=== PATIENT | female | born 1975 | race Two or more races ===

== ENCOUNTER 2016-12-17 15:13 | Inpatient (IN) | payer MEDICAID ==
[~2016-12-17] VITALS: Ht 165.1 cm; Wt 56.7 kg
--- NOTE | 2016-12-17 15:08 | Emergency Room Report ---
History of Present Illness General Source: Patient, EMS Present Illness HPI 41YOF BIBEMS for near-syncope from work. EMS states, near-syncope, ?syncope witnessed at work. Patient endorses abd pain radiating up chest. History of pancreatitis, chronic To nurse, patient endorses "whole body pain for 2 weeks." Multiple stories from patient regarding chief complaint. Per adult secondary education instructor, patient's main concern is "pain everywhere." EMS rhythm strip notes sinus tachycardia. Allergies: Coded Allergies: No Known Allergies (Unverified , 12/17/16) Patient History Past Medical History: other - ?pancreatitis Past Surgical History: none Pertinent Family History: none Social History: Denies: alcohol use, drug use, smoking Now: No Immunizations: UTD Reviewed Nursing Documentation: PMH: Agreed, PSxH: Agreed Review of Systems All Other Systems: negative except mentioned in HPI Physical Exam Sp02 EP Interpretation: reviewed, normal General Appearance: normal inspection, well appearing, no apparent distress, alert, GCS 15, non-toxic Head: normocephalic, atraumatic Eyes: bilateral eye EOMI, bilateral eye PERRL ENT: normal ENT inspection, hearing grossly normal, normal voice Neck: normal inspection, full range of motion, supple, no bony tend Respiratory: normal inspection, lungs clear, normal breath sounds, no respiratory distress, no retraction, no wheezing Cardiovascular #1: tachycardia Gastrointestinal: normal inspection, normal bowel sounds, non tender, soft, no guarding, no hernia Genitourinary: no CVA tenderness Musculoskeletal: normal inspection, back normal, normal range of motion, Palma' s Sign negative Neurologic: normal inspection, alert, oriented x3, responsive, covered button maker III-XII nml as tested, speech normal Psychiatric: normal inspection, judgement/insight normal, mood/affect normal, no suicidal/homicidal ideation, no delusions, anxious Skin: normal inspection, normal color, no rash Medical Decision Making Diagnostic Impression: Primary Impression: Pancreatitis Qualified Codes: K85.90 - Acute pancreatitis without necrosis or infection, unspecified Additional Impression: Sepsis Qualified Codes: A41.9 - Sepsis, unspecified organism ER Course Pancreatitis - ?acute. Lipase >300. LFTs normal - Made NPO, on maintenance fluids - CT: pancreatic duct prominence with ?stent malfunction - informed Dr Toscano who consulted Dr Jolly. Leukocytosis - Unknown source - CXR and UA negative for infection - Empiric Abx given - Blood Cx pending - ?related to acute stress from pancreatitis. patient otherwise afebrile, hemodynamiclly stable Endorsed to Dr Toscano for Panel admit at 553pm EKG Diagnostic Results Rate: tachycardiac Rhythm: NSR ST Segments: no acute changes ASA given to the pt in ED: No Rhythm Strip Diag. Results EP Interpretation: yes Rate: 90 Rhythm: NSR, no PVC's, no ectopy Status: improved Disposition: ADMITTED INPATIENT Condition: Critical MORENO BULLARD M.D. Dec 17, 2016 15:08
[2016-12-17 16:00] VITALS: BP 116/69
[2016-12-17 16:14] LABS: MEAN CORPUSCULAR HEMOGLOBIN 24.4 PG (27.0-31.0); MEAN CORPUSCULAR HGB CONC 30.7 G/DL (32.0-36.0); MEAN CORPUSCULAR VOLUME 80 FL (80-99); MEAN PLATELET VOLUME 8.5 FL (6.5-10.1); PLATELET COUNT 331 K/UL (150-450); RED BLOOD COUNT 4.06 M/UL (4.20-5.40); RED CELL DISTRIBUTION WIDTH 16.3 % (11.6-14.8); WHITE BLOOD COUNT 16.9 K/UL (4.8-10.8)
[2016-12-17 16:39] LABS: ALANINE AMINOTRANSFERASE 14 U/L (3-33); ALBUMIN/GLOBULIN RATIO 1.2 (1.0-2.7); ANION GAP 14 (5-15); ASPARTATE AMINO TRANSFERASE 18 U/L (5-40); CALCIUM 9.6 mg/dL (8.6-10.2); CARBON DIOXIDE 23 mEQ/L (20-30); CHLORIDE 103 mEQ/L (98-107); CREATININE 0.7 mg/dL (0.5-0.9); GLOMERULAR FILTRATION RATE > 60 mL/min (>60); HEMOLYSIS 0; POTASSIUM 3.8 mEQ/L (3.4-4.9); SODIUM 140 mEQ/L (135-145); TOTAL PROTEIN 7.8 g/dL (6.6-8.7)
[2016-12-17 16:39] LABS: APPEARANCE,URINE CLEAR; KETONES,URINE NEGATIVE (NEGATIVE); LEUKOCYTE ESTERASE ,URINE NEGATIVE (NEGATIVE); NITRITE,URINE NEGATIVE (NEGATIVE); PH,URINE 7 (4.5-8.0); PROTEIN,URINE NEGATIVE (NEGATIVE); UROBILINOGEN,URINE NORMAL MG/DL (0.0-1.0)
[2016-12-17 16:40] LABS: ANISOCYTOSIS 1+; BAND NEUTROPHILS % (MANUAL) 0 % (0-8); BASOPHILS % (MANUAL) 0 % (0-2); EOSINOPHILS % (MANUAL) 0 % (0-3); LYMPHOCYTES % (MANUAL) 7 % (20-45); NEUTROPHILS % (MANUAL) 85 % (45-75); PLATELET ESTIMATE ADEQUATE; PLATELET MORPHOLOGY NORMAL; TOTAL CELLS COUNTED 100
[2016-12-17] MEDS ORDERED: Piperacillin/Tazobactam 3.375 GM in NS 110 ML IVPB ONE (16:45)
[2016-12-17] MEDS ORDERED: Vancomycin 1 GM in NS 275 ML IVPB ONE (16:45)
[2016-12-17] MEDS ORDERED: Morphine Sulfate 4mg/ml Inj IVP ONE (16:45)
[2016-12-17 16:51] LABS: LIPASE > 300 U/L (< 60)
[2016-12-17] MEDS ORDERED: LR 1000ml 1,000 ML IV SCH (17:15)
--- NOTE | 2016-12-17 17:22 | Diagnostic Imaging Report ---
Indication: SOB Technique: One view of the chest Comparison: none Findings: Lungs and pleural spaces are clear. Heart size is normal. Impression: No acute process
[2016-12-17 18:00] VITALS: BP 128/72
[2016-12-17] MEDS ORDERED: Morphine Sulfate 2mg/ml Inj IVP ONE (18:00)
[2016-12-17] MEDS ORDERED: Tubing IV Secondary IV ONE (18:00)
[2016-12-17] MEDS ORDERED: Vancomycin 1gm inj IVPB ONE (18:00)
[2016-12-17] MEDS ORDERED: Tubing IV Cassette IV ONE (18:00)
[2016-12-17] MEDS ORDERED: Zosyn 3.375gm inj ONE (18:00)
[2016-12-17] MEDS ORDERED: NS 110 ML ONE (18:00)
[2016-12-17] MEDS ORDERED: NS 275 ML ONE (18:00)
[2016-12-17] MEDS ORDERED: Nitroglycerin Subl 0.4mg tab (Bottle Of 25) SL PRN (18:45)
[2016-12-17] MEDS ORDERED: Metoclopramide 10mg/2ml Inj IVP PRN (18:45)
[2016-12-17] MEDS ORDERED: HYDROmorphone 1mg/ml Carpuject IVP ONE (18:45)
[2016-12-17] MEDS ORDERED: LORazepam Inj 2mg/ml 1ml IV PRN (18:45)
[2016-12-17] MEDS ORDERED: Mylanta II UD 30ml ORAL PRN (18:45)
[2016-12-17] MEDS ORDERED: Miralax 17gm pkt ORAL PRN (18:45)
[2016-12-17 20:00] VITALS: BP 136/74
[2016-12-17 21:53] VITALS: BP 115/67
[2016-12-17] MEDS: D5 1/2NS 1,000 ML IV SCH (22:57)
[2016-12-17] MEDS: Heparin 5000 units/ml inj SUBQ SCH (22:58)
--- NOTE | 2016-12-17 23:01 | History and Physical ---
History of Present Illness General Date patient seen: Dec 17, 2016 Reason for Hospitalization: General Complaint Present Illness HPI 41 year old female with hx of pancreatitis presented with multiple complains but mostly abdominal pain, epigastric with radiation to the RLQ and surrounding areas x 3 weeks. The patient has history of pancreatic stent placement 2 years ago. Her lipase was > 300 with possible pancreatic stent malfunction on CT AP. In addition, noted 5 cm mass on right hepatic lobe. Pt is admitted for further evaluation. Allergies: Coded Allergies: No Known Allergies (Unverified , 12/17/16) Patient History Healthcare decision maker Resuscitation status Advanced Directive on File Past Medical/Surgical History Past Medical/Surgical History: (1) Liver mass, right lobe (2) Anemia (3) Pancreatitis Review of Systems All Other Systems: negative except mentioned in HPI Physical Exam General Appearance: WD/WN Lines, tubes and drains: peripheral HEENT: normocephalic, atraumatic Neck: non-tender, normal alignment Respiratory/Chest: chest wall non-tender, lungs clear Breasts: no masses Cardiovascular/Chest: normal peripheral pulses, normal rate Abdomen: normal bowel sounds, soft Genitourinary/Rectal: normal genital exam Extremities: normal range of motion, non-tender Skin Exam: normal pigmentation Neurologic: senior business architect II-XII grossly normal Lymphatic: anterior cervical Last 24 Hour Vital Signs Date Time Temp Pulse Resp B/P Pulse Ox O2 Delivery O2 Flow Rate FiO2 12/17/16 21:53 97.9 71 14 115/67 100 Room Air 12/17/16 20:00 97.9 71 12 136/74 100 Room Air 12/17/16 18:20 99.0 12/17/16 18:00 72 16 128/72 100 Room Air 12/17/16 17:15 99.0 12/17/16 16:00 68 16 116/69 100 Room Air 12/17/16 15:06 99.0 106 20 144/93 98 Room Air Laboratory Tests Test 12/17/16 15:45 12/17/16 16:30 White Blood Count 16.9 K/UL (4.8-10.8) H Red Blood Count 4.06 M/UL (4.20-5.40) L Hemoglobin 9.9 G/DL (12.0-16.0) L Hematocrit 32.3 % (37.0-47.0) L Mean Corpuscular Volume 80 FL (80-99) Mean Corpuscular Hemoglobin 24.4 PG (27.0-31.0) L Mean Corpuscular Hemoglobin Concent 30.7 G/DL (32.0-36.0) L Red Cell Distribution Width 16.3 % (11.6-14.8) H Platelet Count 331 K/UL (150-450) Mean Platelet Volume 8.5 FL (6.5-10.1) Neutrophils (%) (Auto) % (45.0-75.0) Lymphocytes (%) (Auto) % (20.0-45.0) Monocytes (%) (Auto) % (1.0-10.0) Eosinophils (%) (Auto) % (0.0-3.0) Basophils (%) (Auto) % (0.0-2.0) Differential Total Cells Counted 100 Neutrophils % (Manual) 85 % (45-75) H Lymphocytes % (Manual) 7 % (20-45) L Monocytes % (Manual) 8 % (1-10) Eosinophils % (Manual) 0 % (0-3) Basophils % (Manual) 0 % (0-2) Band Neutrophils 0 % (0-8) Platelet Estimate Adequate Platelet Morphology Normal Anisocytosis 1+ Sodium Level 140 mEQ/L (135-145) Potassium Level 3.8 mEQ/L (3.4-4.9) Chloride Level 103 mEQ/L (98-107) Carbon Dioxide Level 23 mEQ/L (20-30) Anion Gap 14 (5-15) Blood Urea Nitrogen 8 mg/dL (7-23) Creatinine 0.7 mg/dL (0.5-0.9) Estimat Glomerular Filtration Rate > 60 mL/min (>60) Glucose Level 120 mg/dL (74-106) H Calcium Level 9.6 mg/dL (8.6-10.2) Total Bilirubin 0.4 mg/dL (0.0-1.2) Aspartate Amino Transf (AST/SGOT) 18 U/L (5-40) Alanine Aminotransferase (ALT/SGPT) 14 U/L (3-33) Alkaline Phosphatase 60 U/L (35-104) Total Protein 7.8 g/dL (6.6-8.7) Albumin 4.3 g/dL (3.5-5.2) Globulin 3.5 g/dL Albumin/Globulin Ratio 1.2 (1.0-2.7) Lipase > 300 U/L (< 60) H Urine Color Pale yellow Urine Appearance Clear Urine pH 7 (4.5-8.0) Urine Specific [address] 1.010 (1.005-1.035) Urine Protein Negative (NEGATIVE) Urine Glucose (UA) Negative (NEGATIVE) Urine Ketones Negative (NEGATIVE) Urine Occult Blood Negative (NEGATIVE) Urine Nitrite Negative (NEGATIVE) Urine Bilirubin Negative (NEGATIVE) Urine Urobilinogen Normal MG/DL (0.0-1.0) Urine Leukocyte Esterase Negative (NEGATIVE) Height (Feet): 5 Weight (Pounds): 125 Medications Current Medications Medications (Trade) Dose Ordered Sig/José Luis Route PRN Reason Start Time Stop Time Status Last Admin Dose Admin Acetaminophen (Tylenol) 650 mg Q4H PRN ORAL fever 12/17/16 18:45 01/16/17 18:44 Al Hydroxide/Mg Hydroxide (Mylanta II) 30 ml Q6H PRN ORAL dyspepsia 12/17/16 18:45 01/16/17 18:44 Dextrose (Dextrose 50%) STAT PRN IV Hypoglycemia 12/17/16 18:45 01/16/17 18:44 Dextrose/Sodium Chloride (D5 0.45% NS) 1,000 ml @ 75 mls/hr [id number] IV 12/17/16 21:00 01/16/17 20:59 12/17/16 22:57 Diphenhydramine HCl (Benadryl) 25 mg Q6H PRN ORAL Itching/Pruritis 12/17/16 18:45 01/16/17 18:44 Heparin Sodium (Porcine) (Heparin 5000 units/ml) 5,000 units EVERY 12 HOURS SUBQ 12/17/16 21:00 01/16/17 20:59 12/17/16 22:58 Lorazepam (Ativan 2mg/ml 1ml) 1 mg Q4H PRN IV agitation 12/17/16 18:45 12/24/16 18:44 Metoclopramide HCl (Reglan) 10 mg Q6H PRN IVP servere nauasea 12/17/16 18:45 01/16/17 18:44 Morphine Sulfate (Morphine Sulfate) 2 mg Q4H PRN IVP severe Pain (Pain Scale 7-10) 12/17/16 18:45 12/24/16 18:44 Nitroglycerin (Ntg) 0.4 mg Q5M X 3 DOSES PRN SL Prn Chest Pain 12/17/16 18:45 01/16/17 18:44 Ondansetron HCl (Zofran) 4 mg Q6H PRN IVP Nausea & Vomiting 12/17/16 18:45 01/16/17 18:44 Pantoprazole (Protonix) 40 mg DAILY IV 12/18/16 09:00 01/17/17 08:59 Polyethylene Glycol (Miralax) 17 gm HSPRN PRN ORAL Constipation 12/17/16 18:45 01/16/17 18:44 Promethazine HCl (Phenergan) 25 mg Q8H PRN IV refractory nausea 12/17/16 18:45 01/16/17 18:44 Temazepam (Restoril) 15 mg HSPRN PRN ORAL Insomnia 12/17/16 18:45 12/24/16 18:44 Assessment/Plan Problem List: (1) Pancreatitis ICD Codes: K85.90 - Acute pancreatitis without necrosis or infection, unspecified SNOMED: 60107454 Qualifiers: Qualified Codes: K85.90 - Acute pancreatitis without necrosis or infection, unspecified (2) Anemia ICD Codes: D64.9 - Anemia, unspecified SNOMED: 042154763 (3) Liver mass, right lobe ICD Codes: R16.0 - Hepatomegaly, not elsewhere classified SNOMED: 052466528 Assessment/Plan NPO IV fluids GI evaluation f/u lipase level sympotmatic treatment AMINAH TAM Dec 17, 2016 23:01
[2016-12-17] MEDS: Morphine Sulfate 2mg/ml Inj IVP PRN (23:08)
[2016-12-18] VITALS: BP 106/67
[2016-12-18] MEDS: Morphine Sulfate 2mg/ml Inj IVP PRN ×2 (03:53→16:27)
[2016-12-18 03:55] VITALS: BP 110/62
[2016-12-18 08:09] VITALS: BP 101/61
[2016-12-18] MEDS: Pantoprazole Inj IV SCH (08:30)
[2016-12-18] MEDS: Heparin 5000 units/ml inj SUBQ SCH ×2 (08:31→21:51)
--- NOTE | 2016-12-18 10:27 | Diagnostic Imaging Report ---
Indications: Abdominal pain Technique: Continuous helical CT imaging of the abdomen and pelvis was performed with automatic exposure control following administration of nonionic IV contrast only, on a Siemens sensation [address] scanner. Axial, coronal, sagittal images were reconstructed at 5 mm slice thickness. No oral contrast was administered per requesting physician's order, despite no contraindications listed in either submitted clinical data or tech note.. CTDI volume(s): 15 mGy Total DLP: 821 mGy-cm Findings: Comparison: None Lack of oral contrast limits evaluation of gastrointestinal tract, nondilated throughout. Appendix unremarkable. Increased feces throughout colon. No obvious mural thickening, adjacent stranding, extraluminal gas or fluid collections identified, aside from minimal free fluid in the dependent portion of the pelvis. 2 cm thickwalled irregular cystic lesion in right adnexal region. 3 cm simple appearing cystic lesion in left adnexal region. Prominence of uterine endometrium. 5 cm low-attenuation mass in posterior aspect of hepatic segment 7 with patchy areas of peripheral and central enhancement. Stent extends from a pancreatic duct into the second portion of duodenum. Pancreatic duct peripheral to stent diffusely dilated. No associated mass identified.. Kc liver, gallbladder, spleen, adrenal glands, kidneys, unopacified ureters and urinary bladder,, vascular structures, retroperitoneum, mesentery, remainder visualized abdominopelvic anatomy unremarkable. Irregular pleural-based linear densities in both lung bases. Hazy interstitial opacity left lower lobe. Heart upper limits of normal in size.. No focal skeletal abnormalities are identified. IMPRESSION: No evidence of acute abdominopelvic disease, with limitation as described. Subtle but potentially significant abnormalities the gastrointestinal tract may be missed. Repeat CT scan with full oral and IV contrast preparation recommended for more complete evaluation, as clinically indicated Bilateral adnexal cystic lesions as described, likely physiologic ovarian, right perhaps recently ruptured Minimal pelvic free fluid may be secondary to above Prominence of uterine endometrium may reflect phase of menses. Ultrasound correlation suggested. 5 cm mass right hepatic lobe probably but not definitely hemangioma. Multiphasic contrast-enhanced CT scan or MRI of the liver, mass protocol, recommended for confirmation Pancreatic duct dilation, etiology indeterminate, with plastic stent in place Constipation Pulmonary bibasal subsegmental atelectasis versus scarring Nonspecific interstitial infiltrate left lung base. Early pneumonia not excludable. This finding not described in [facility] preliminary report, minor discrepancy. This correlates with [facility] preliminary report.
[2016-12-18] MEDS: D5 1/2NS 1,000 ML IV SCH ×2 (10:38→23:59)
[2016-12-18 11:34] VITALS: BP 103/58
--- NOTE | 2016-12-18 13:59 | Diagnostic Imaging Report ---
Indications: Epigastric abdominal pain Technique: Transabdominal real-time grayscale and duplex Doppler imaging of the upper abdomen and retroperitoneum was performed. Findings: Comparison: CT abdomen pelvis 12/17/16. Liver normal size and surface contour, parenchymal echogenicity. 5 x 4 x 3 cm solid echogenic mass in posterior aspect right hepatic lobe, corresponding to CT finding.. Gallbladder unremarkable. No intraluminal stones or sludge. No mural thickening or adjacent fluid collections. Sonographic Gregory sign not reported.. Bile ducts normal caliber. Common bile duct 6 mm. Pancreas main duct dilated 6 mm, contains linear echogenic focus. Head and body parenchyma unremarkable; tail obscured. Spleen unremarkable. Right kidney unremarkable. Left kidney unremarkable. Abdominal aorta, intrahepatic portion of inferior vena cava patent, normal caliber. Duplex Doppler imaging demonstrates antegrade flow in splenic, portal, hepatic veins. No ascites. IMPRESSION: Dilated pancreatic duct with stent in place, corresponding to CT findings. Stent patency indeterminate. 5 cm mass right hepatic lobe compatible with hemangioma, corresponding to CT finding.
--- NOTE | 2016-12-18 14:23 | GI Initial Consult Note ---
History of Present Illness General Date patient seen: Dec 18, 2016 Time patient seen: 11:00 Reason for Hospitalization: General Complaint Referring physician: AMINAH CONNOR Reason for Consultation: PANCREATITIS Present Illness HPI 41YOF BIBEMS for near-syncope from work. EMS states, near-syncope, ?syncope witnessed at work. Patient endorses abd pain radiating up chest. History of pancreatitis, chronic To nurse, patient endorses "whole body pain for 2 weeks." Multiple stories from patient regarding chief complaint. Per toolroom helper, patient's main concern is "pain everywhere." EMS rhythm strip notes sinus tachycardia. GI Consult. HPI as noted above. GI consulted for pancreatitis. Pt seen on floor, awake A&Ox4 NAD with no active s/sx of N/V/D. Complaints of abdominal pain epigastric with radiation to the RLQ and surrounding areas x 3 weeks. The patient has history of pancreatic stent placement 2 years ago. She presents today with elevated lipase > 300 with possible pancreatic stent malfunction on CT AP. In addition, noted 5 cm mass on right hepatic lobe. Labs show leukocytosis and anemia. Procedure: CT Abdomen Pelvis w/Contrast Indications: Abdominal pain IMPRESSION: No evidence of acute abdominopelvic disease, with limitation as described. Subtle but potentially significant abnormalities the gastrointestinal tract may be missed. Repeat CT scan with full oral and IV contrast preparation recommended for more complete evaluation, as clinically indicated Bilateral adnexal cystic lesions as described, likely physiologic ovarian, right perhaps recently ruptured Minimal pelvic free fluid may be secondary to above Prominence of uterine endometrium may reflect phase of menses. Ultrasound correlation suggested. 5 cm mass right hepatic lobe probably but not definitely hemangioma. Multiphasic contrast-enhanced CT scan or MRI of the liver, mass protocol, recommended for confirmation Pancreatic duct dilation, etiology indeterminate, with plastic stent in place Constipation Pulmonary bibasal subsegmental atelectasis versus scarring Nonspecific interstitial infiltrate left lung base. Early pneumonia not excludable. Procedure: US ABD Complete Indications: Epigastric abdominal pain IMPRESSION: Dilated pancreatic duct with stent in place, corresponding to CT findings. Stent patency indeterminate. 5 cm mass right hepatic lobe compatible with hemangioma, corresponding to CT finding. Allergies: Coded Allergies: No Known Allergies (Unverified , 12/17/16) Patient History History Provided By: Patient, Medical Record PM Narrative Past Medical History: other - ?pancreatitis Past Surgical History: none Pertinent Family History: none Social History: Denies: alcohol use, drug use, smoking Now: No Immunizations: UTD Reviewed Nursing Documentation: PMH: Agreed, PSxH: Agreed Social History: Denies: alcohol use, drug use, other, smoking Review of Systems All Other Systems: negative except mentioned in HPI Physical Exam Vital Signs Date Time Temp Pulse Resp B/P Pulse Ox O2 Delivery O2 Flow Rate FiO2 12/17/16 15:06 99.0 106 20 144/93 98 Room Air Sp02 EP Interpretation: reviewed Labs Laboratory Tests Test 12/17/16 15:45 12/17/16 16:30 White Blood Count 16.9 K/UL (4.8-10.8) H Red Blood Count 4.06 M/UL (4.20-5.40) L Hemoglobin 9.9 G/DL (12.0-16.0) L Hematocrit 32.3 % (37.0-47.0) L Mean Corpuscular Volume 80 FL (80-99) Mean Corpuscular Hemoglobin 24.4 PG (27.0-31.0) L Mean Corpuscular Hemoglobin Concent 30.7 G/DL (32.0-36.0) L Red Cell Distribution Width 16.3 % (11.6-14.8) H Platelet Count 331 K/UL (150-450) Mean Platelet Volume 8.5 FL (6.5-10.1) Neutrophils (%) (Auto) % (45.0-75.0) Lymphocytes (%) (Auto) % (20.0-45.0) Monocytes (%) (Auto) % (1.0-10.0) Eosinophils (%) (Auto) % (0.0-3.0) Basophils (%) (Auto) % (0.0-2.0) Differential Total Cells Counted 100 Neutrophils % (Manual) 85 % (45-75) H Lymphocytes % (Manual) 7 % (20-45) L Monocytes % (Manual) 8 % (1-10) Eosinophils % (Manual) 0 % (0-3) Basophils % (Manual) 0 % (0-2) Band Neutrophils 0 % (0-8) Platelet Estimate Adequate Platelet Morphology Normal Anisocytosis 1+ Sodium Level 140 mEQ/L (135-145) Potassium Level 3.8 mEQ/L (3.4-4.9) Chloride Level 103 mEQ/L (98-107) Carbon Dioxide Level 23 mEQ/L (20-30) Anion Gap 14 (5-15) Blood Urea Nitrogen 8 mg/dL (7-23) Creatinine 0.7 mg/dL (0.5-0.9) Estimat Glomerular Filtration Rate > 60 mL/min (>60) Glucose Level 120 mg/dL (74-106) H Calcium Level 9.6 mg/dL (8.6-10.2) Total Bilirubin 0.4 mg/dL (0.0-1.2) Aspartate Amino Transf (AST/SGOT) 18 U/L (5-40) Alanine Aminotransferase (ALT/SGPT) 14 U/L (3-33) Alkaline Phosphatase 60 U/L (35-104) Total Protein 7.8 g/dL (6.6-8.7) Albumin 4.3 g/dL (3.5-5.2) Globulin 3.5 g/dL Albumin/Globulin Ratio 1.2 (1.0-2.7) Lipase > 300 U/L (< 60) H Urine Color Pale yellow Urine Appearance Clear Urine pH 7 (4.5-8.0) Urine Specific [place] 1.010 (1.005-1.035) Urine Protein Negative (NEGATIVE) Urine Glucose (UA) Negative (NEGATIVE) Urine Ketones Negative (NEGATIVE) Urine Occult Blood Negative (NEGATIVE) Urine Nitrite Negative (NEGATIVE) Urine Bilirubin Negative (NEGATIVE) Urine Urobilinogen Normal MG/DL (0.0-1.0) Urine Leukocyte Esterase Negative (NEGATIVE) General Appearance: well appearing, no apparent distress Head: normocephalic EENT: PERRL/EOMI, normal ENT inspection Neck: supple Respiratory: normal breath sounds, no respiratory distress Cardiovascular: normal rate Gastrointestinal: soft, normal bowel sounds, tenderness Rectal: deferred Genitourinary: no CVA tenderness Musculoskeletal: back normal Neurologic: normal inspection, alert, oriented x3, responsive Psychiatric: normal inspection, judgement/insight normal, memory normal Skin: normal inspection, normal color, no rash, warm/dry Lymphatic: normal inspection, no adenopathy Current Medications Current Medications Medications (Trade) Dose Ordered Sig/José Luis Route PRN Reason Start Time Stop Time Status Last Admin Dose Admin Acetaminophen (Tylenol) 650 mg Q4H PRN ORAL fever 12/17/16 18:45 01/16/17 18:44 Al Hydroxide/Mg Hydroxide (Mylanta II) 30 ml Q6H PRN ORAL dyspepsia 12/17/16 18:45 01/16/17 18:44 Dextrose (Dextrose 50%) STAT PRN IV Hypoglycemia 12/17/16 18:45 01/16/17 18:44 Dextrose/Sodium Chloride (D5 0.45% NS) 1,000 ml @ 75 mls/hr [id number] IV 12/17/16 21:00 01/16/17 20:59 12/18/16 10:38 Diphenhydramine HCl (Benadryl) 25 mg Q6H PRN ORAL Itching/Pruritis 12/17/16 18:45 01/16/17 18:44 Heparin Sodium (Porcine) (Heparin 5000 units/ml) 5,000 units EVERY 12 HOURS SUBQ 12/17/16 21:00 01/16/17 20:59 12/18/16 08:31 Lorazepam (Ativan 2mg/ml 1ml) 1 mg Q4H PRN IV agitation 12/17/16 18:45 12/24/16 18:44 Metoclopramide HCl (Reglan) 10 mg Q6H PRN IVP servere nauasea 12/17/16 18:45 01/16/17 18:44 Morphine Sulfate (Morphine Sulfate) 2 mg Q4H PRN IVP severe Pain (Pain Scale 7-10) 12/17/16 18:45 12/24/16 18:44 12/18/16 03:53 Nitroglycerin (Ntg) 0.4 mg Q5M X 3 DOSES PRN SL Prn Chest Pain 12/17/16 18:45 01/16/17 18:44 Ondansetron HCl (Zofran) 4 mg Q6H PRN IVP Nausea & Vomiting 12/17/16 18:45 01/16/17 18:44 12/18/16 03:52 Pantoprazole (Protonix) 40 mg DAILY IV 12/18/16 09:00 01/17/17 08:59 12/18/16 08:30 Polyethylene Glycol (Miralax) 17 gm HSPRN PRN ORAL Constipation 12/17/16 18:45 01/16/17 18:44 Promethazine HCl (Phenergan) 25 mg Q8H PRN IV refractory nausea 12/17/16 18:45 01/16/17 18:44 Temazepam (Restoril) 15 mg HSPRN PRN ORAL Insomnia 12/17/16 18:45 12/24/16 18:44 GI: Plan Problems: (1) Anemia (2) Liver mass, right lobe (3) Leukocytosis (4) Pancreatitis (5) Sepsis Plan ERCP to be scheduled ordered MRI liver protocol to evaluate mass ordered tumor markers, hepatitis panel maintain NPO + IVFs pain mgmt repeat lipase levels ppi abx fu labs Discussed with Dr. Jolly. Thank you for referring this patient, we will follow. Jaylyn Orlando N.P. Dec 18, 2016 14:23
--- NOTE | 2016-12-18 15:26 | Pulmonology Progress Note ---
Assessment/Plan Problems: (1) Pancreatitis (2) Anemia (3) Liver mass, right lobe Assessment/Plan scheduled for ERCP NPO iv fluids check electrolytes Subjective ROS Limited/Unobtainable: No HEENT: Repors: no symptoms Respiratory: Reports: no symptoms Cardiovascular: Reports: no symptoms Allergies: Coded Allergies: No Known Allergies (Unverified , 12/17/16) Objective Last 24 Hour Vital Signs Date Time Temp Pulse Resp B/P Pulse Ox O2 Delivery O2 Flow Rate FiO2 12/18/16 11:34 97.7 65 20 103/58 98 Room Air 12/18/16 08:09 98.2 61 18 101/61 97 Room Air 12/18/16 04:23 97.6 12/18/16 03:55 97.6 65 17 110/62 95 Room Air 12/18/16 00:00 97.5 73 20 106/67 99 Room Air 12/17/16 21:53 97.9 70 12 115/67 96 Room Air 12/17/16 21:53 97.9 71 14 115/67 100 Room Air 12/17/16 20:00 97.9 71 12 136/74 100 Room Air 12/17/16 18:20 99.0 12/17/16 18:00 72 16 128/72 100 Room Air 12/17/16 17:15 99.0 12/17/16 16:00 68 16 116/69 100 Room Air Intake and Output 12/17/16 12/18/16 19:00 07:00 Intake Total 1110 ml 600 ml Balance 1110 ml 600 ml Intake Oral 0 ml 0 ml IV Total 1110 ml 600 ml # Voids 1 General Appearance: WD/WN HEENT: normocephalic, atraumatic Respiratory/Chest: chest wall non-tender, lungs clear Breasts: no masses Cardiovascular: normal peripheral pulses Abdomen: normal bowel sounds, soft, non tender Genitourinary: normal external genitalia Extremities: no cyanosis Skin: no rash Neurologic/Psychiatric: drug safety physician II-XII grossly normal Laboratory Tests 12/17/16 15:45: White Blood Count 16.9H, Red Blood Count 4.06L, Hemoglobin 9.9L, Hematocrit 32.3L, Mean Corpuscular Volume 80, Mean Corpuscular Hemoglobin 24.4L, Mean Corpuscular Hemoglobin Concent 30.7L, Red Cell Distribution Width 16.3H, Platelet Count 331, Mean Platelet Volume 8.5, Neutrophils (%) (Auto) , Lymphocytes (%) (Auto) , Monocytes (%) (Auto) , Eosinophils (%) (Auto) , Basophils (%) (Auto) , Differential Total Cells Counted 100, Neutrophils % ( Manual) 85H, Lymphocytes % (Manual) 7L, Monocytes % (Manual) 8, Eosinophils % ( Manual) 0, Basophils % (Manual) 0, Band Neutrophils 0, Platelet Estimate Adequate, Platelet Morphology Normal, Anisocytosis 1+, Sodium Level 140, Potassium Level 3.8, Chloride Level 103, Carbon Dioxide Level 23, Anion Gap 14, Blood Urea Nitrogen 8, Creatinine 0.7, Estimat Glomerular Filtration Rate > 60, Glucose Level 120H, Calcium Level 9.6, Total Bilirubin 0.4, Aspartate Amino Transf (AST/SGOT) 18, Alanine Aminotransferase (ALT/SGPT) 14, Alkaline Phosphatase 60, Total Protein 7.8, Albumin 4.3, Globulin 3.5, Albumin/Globulin Ratio 1.2, Lipase > 300H 12/17/16 16:30: Urine Color Pale yellow, Urine Appearance Clear, Urine pH 7, Urine Specific Igo 1.010, Urine Protein Negative, Urine Glucose (UA) Negative, Urine Ketones Negative, Urine Occult Blood Negative, Urine Nitrite Negative, Urine Bilirubin Negative, Urine Urobilinogen Normal, Urine Leukocyte Esterase Negative Current Medications Medications (Trade) Dose Ordered Sig/José Luis Route PRN Reason Start Time Stop Time Status Last Admin Dose Admin Acetaminophen (Tylenol) 650 mg Q4H PRN ORAL fever 12/17/16 18:45 01/16/17 18:44 Al Hydroxide/Mg Hydroxide (Mylanta II) 30 ml Q6H PRN ORAL dyspepsia 12/17/16 18:45 01/16/17 18:44 Dextrose (Dextrose 50%) STAT PRN IV Hypoglycemia 12/17/16 18:45 01/16/17 18:44 Dextrose/Sodium Chloride (D5 0.45% NS) 1,000 ml @ 75 mls/hr [id number] IV 12/17/16 21:00 01/16/17 20:59 12/18/16 10:38 Diphenhydramine HCl (Benadryl) 25 mg Q6H PRN ORAL Itching/Pruritis 12/17/16 18:45 01/16/17 18:44 Heparin Sodium (Porcine) (Heparin 5000 units/ml) 5,000 units EVERY 12 HOURS SUBQ 12/17/16 21:00 01/16/17 20:59 12/18/16 08:31 Lorazepam (Ativan 2mg/ml 1ml) 1 mg Q4H PRN IV agitation 12/17/16 18:45 12/24/16 18:44 Metoclopramide HCl (Reglan) 10 mg Q6H PRN IVP servere nafreemansea 12/17/16 18:45 01/16/17 18:44 Morphine Sulfate (Morphine Sulfate) 2 mg Q4H PRN IVP severe Pain (Pain Scale 7-10) 12/17/16 18:45 12/24/16 18:44 12/18/16 03:53 Nitroglycerin (Ntg) 0.4 mg Q5M X 3 DOSES PRN SL Prn Chest Pain 12/17/16 18:45 01/16/17 18:44 Ondansetron HCl (Zofran) 4 mg Q6H PRN IVP Nausea & Vomiting 12/17/16 18:45 01/16/17 18:44 12/18/16 03:52 Pantoprazole (Protonix) 40 mg DAILY IV 12/18/16 09:00 01/17/17 08:59 12/18/16 08:30 Polyethylene Glycol (Miralax) 17 gm HSPRN PRN ORAL Constipation 12/17/16 18:45 01/16/17 18:44 Promethazine HCl (Phenergan) 25 mg Q8H PRN IV refractory nausea 12/17/16 18:45 01/16/17 18:44 Temazepam (Restoril) 15 mg HSPRN PRN ORAL Insomnia 12/17/16 18:45 12/24/16 18:44 AMINAH TAM Dec 18, 2016 15:26
[2016-12-18 15:55] VITALS: BP 109/59
[2016-12-18 20:00] VITALS: BP 119/66
[2016-12-19] VITALS: BP 98/56
[2016-12-19 04:00] VITALS: BP 101/53
[2016-12-19 05:50] LABS: BASOPHILS % (AUTO) 0.7 % (0.0-2.0); EOSINOPHILS % (AUTO) 1.6 % (0.0-3.0); LYMPHOCYTES % (AUTO) 17.1 % (20.0-45.0); MEAN CORPUSCULAR HEMOGLOBIN 24.6 PG (27.0-31.0); MEAN CORPUSCULAR HGB CONC 30.8 G/DL (32.0-36.0); MEAN CORPUSCULAR VOLUME 80 FL (80-99); MEAN PLATELET VOLUME 8.5 FL (6.5-10.1); MONOCYTES % (AUTO) 8.9 % (1.0-10.0); NEUTROPHILS % (AUTO) 71.7 % (45.0-75.0); PLATELET COUNT 301 K/UL (150-450); RED BLOOD COUNT 3.94 M/UL (4.20-5.40); WHITE BLOOD COUNT 7.2 K/UL (4.8-10.8)
[2016-12-19 06:48] LABS: ALANINE AMINOTRANSFERASE 11 U/L (3-33); ALBUMIN/GLOBULIN RATIO 1.2 (1.0-2.7); ANION GAP 11 (5-15); ASPARTATE AMINO TRANSFERASE 12 U/L (5-40); CALCIUM 9.1 mg/dL (8.6-10.2); CARBON DIOXIDE 26 mEQ/L (20-30); CHLORIDE 103 mEQ/L (98-107); CREATININE 0.7 mg/dL (0.5-0.9); GLOMERULAR FILTRATION RATE > 60 mL/min (>60); HEMOLYSIS 3; POTASSIUM 4.1 mEQ/L (3.4-4.9); SODIUM 140 mEQ/L (135-145); TOTAL PROTEIN 7.1 g/dL (6.6-8.7)
[2016-12-19 07:34] LABS: AMYLASE 65 U/L (10-110); LIPASE 82 U/L (< 60)
[2016-12-19 07:56] VITALS: BP 97/57
[2016-12-19 08:09] LABS: ALANINE AMINOTRANSFERASE 12 U/L (3-33); ALBUMIN/GLOBULIN RATIO 1.2 (1.0-2.7); AMYLASE 64 U/L (10-110); ANION GAP 13 (5-15); ASPARTATE AMINO TRANSFERASE 15 U/L (5-40); CALCIUM 9.2 mg/dL (8.6-10.2); CARBON DIOXIDE 23 mEQ/L (20-30); CHLORIDE 103 mEQ/L (98-107); CREATININE 0.7 mg/dL (0.5-0.9); GLOMERULAR FILTRATION RATE > 60 mL/min (>60); HEMOLYSIS 1; LIPASE 82 U/L (< 60); POTASSIUM 4.1 mEQ/L (3.4-4.9); SODIUM 139 mEQ/L (135-145); TOTAL PROTEIN 7.1 g/dL (6.6-8.7)
[2016-12-19] MEDS: Pantoprazole Inj IV SCH (08:09)
[2016-12-19] MEDS: Heparin 5000 units/ml inj SUBQ SCH ×2 (08:13→20:23)
--- NOTE | 2016-12-19 08:42 | Diagnostic Imaging Report ---
Indications: Abdominal pain, liver mass Technique: Coronal and axial T2-weighted single shot fast spin-echo breath-hold, axial T2-weighted fat-saturated fast spin-echo, 2-D fiesta fat sat, dual echo spoiled gradient breath-hold, and lava flex sequences of the abdomen were performed prior to IV gadolinium administration. Coronal and serial axial lava flex sequences performed following IV gadolinium administration. Findings: Comparison: CT abdomen pelvis 12/17/16 5 x 3 x 4.5 cm sharply circumscribed, multilobulated mass is present in the posterior periphery of hepatic segment 7, corresponding to CT finding. Similar 7 mm mass is present in hepatic segment 8 immediately beneath the liver dome. Both demonstrate relatively uniform T2 signal hyperintensity, are hypointense on spoiled gradient and pre-gadolinium lava sequences, and demonstrate progressive nodular centripetal enhancement on sequential post gadolinium lava sequences. The pancreatic duct diffusely dilated. No associated mass identified. Bile ducts not dilated. Gallbladder, spleen, adrenal glands, kidneys, proximal ureters, remainder of visualized abdominal anatomy unremarkable. Tiny bibasal pleural effusions. IMPRESSION: 2 separate right hepatic lobe masses as described, the larger of which corresponds to CT finding, both compatible with cavernous hemangiomas. Pancreatic duct dilation, also previously described, etiology indeterminate Tiny bibasal pleural effusions, nonspecific
[2016-12-19] MEDS ORDERED: Tubing IV Secondary IV ONE (11:18)
[2016-12-19 11:55] VITALS: BP 115/70
--- NOTE | 2016-12-19 12:00 | GI Progress Note ---
Assessment/Plan Problems: (1) Liver mass, right lobe ICD Codes: R16.0 - Hepatomegaly, not elsewhere classified SNOMED: 466192674 (2) Leukocytosis ICD Codes: D72.829 - Elevated white blood cell count, unspecified SNOMED: 135684238, 762584365 (3) Anemia ICD Codes: D64.9 - Anemia, unspecified SNOMED: 562063846 (4) Sepsis ICD Codes: A41.9 - Sepsis, unspecified organism SNOMED: 26492956 Qualifiers: Qualified Codes: A41.9 - Sepsis, unspecified organism (5) Pancreatitis ICD Codes: K85.90 - Acute pancreatitis without necrosis or infection, unspecified SNOMED: 97594499 Qualifiers: Qualified Codes: K85.90 - Acute pancreatitis without necrosis or infection, unspecified Status: unchanged Status Narrative Discussed with Dr. Jolly. Assessment/Plan MRI reviewed >> cavernous hemangiomas x 2. Pancreatic duct dilation. elevated lipase >> downtrending elevated CA19-9 >> 42.8 ERCP rescheduled to Saturday. CLD + IVFs repeat lipase levels fu hepatitis panel pain mgmt ppi abx fu labs Subjective Subjective abdominal pain improved Objective Last 24 Hour Vital Signs Date Time Temp Pulse Resp B/P Pulse Ox O2 Delivery O2 Flow Rate FiO2 12/19/16 11:55 97.6 79 20 115/70 99 Room Air 12/19/16 07:56 99.7 69 20 97/57 98 Room Air 12/19/16 04:00 97.7 70 18 101/53 99 Room Air 12/19/16 00:00 98.0 59 16 98/56 97 Room Air 12/18/16 20:00 97.4 63 18 119/66 99 Room Air 12/18/16 15:55 97.2 88 19 109/59 96 Room Air Intake and Output 12/18/16 12/19/16 19:00 07:00 Intake Total 825 ml 75 ml Balance 825 ml 75 ml IV Total 825 ml 75 ml # Voids 1 2 # Bowel Movements 1 Laboratory Tests Test 12/19/16 05:20 White Blood Count 7.2 K/UL (4.8-10.8) Red Blood Count 3.94 M/UL (4.20-5.40) L Hemoglobin 9.7 G/DL (12.0-16.0) L Hematocrit 31.5 % (37.0-47.0) L Mean Corpuscular Volume 80 FL (80-99) Mean Corpuscular Hemoglobin 24.6 PG (27.0-31.0) L Mean Corpuscular Hemoglobin Concent 30.8 G/DL (32.0-36.0) L Red Cell Distribution Width 16.0 % (11.6-14.8) H Platelet Count 301 K/UL (150-450) Mean Platelet Volume 8.5 FL (6.5-10.1) Neutrophils (%) (Auto) 71.7 % (45.0-75.0) Lymphocytes (%) (Auto) 17.1 % (20.0-45.0) L Monocytes (%) (Auto) 8.9 % (1.0-10.0) Eosinophils (%) (Auto) 1.6 % (0.0-3.0) Basophils (%) (Auto) 0.7 % (0.0-2.0) Sodium Level 140 mEQ/L (135-145) Potassium Level 4.1 mEQ/L (3.4-4.9) Chloride Level 103 mEQ/L (98-107) Carbon Dioxide Level 26 mEQ/L (20-30) Anion Gap 11 (5-15) Blood Urea Nitrogen 6 mg/dL (7-23) L Creatinine 0.7 mg/dL (0.5-0.9) Estimat Glomerular Filtration Rate > 60 mL/min (>60) Glucose Level 128 mg/dL (74-106) H Calcium Level 9.1 mg/dL (8.6-10.2) Total Bilirubin 0.3 mg/dL (0.0-1.2) Aspartate Amino Transf (AST/SGOT) 12 U/L (5-40) Alanine Aminotransferase (ALT/SGPT) 11 U/L (3-33) Alkaline Phosphatase 53 U/L (35-104) Total Protein 7.1 g/dL (6.6-8.7) Albumin 4.0 g/dL (3.5-5.2) Globulin 3.1 g/dL Albumin/Globulin Ratio 1.2 (1.0-2.7) Amylase Level 65 U/L (10-110) Lipase 82 U/L (< 60) H Alpha Fetoprotein Pending Carcinoembryonic Antigen 1.6 ng/mL CA 19-9 Antigen 42.83 U/mL (< 37) H Hepatitis A IgM Antibody Pending Hepatitis B Surface Antigen Pending Hepatitis B Core IgM Antibody Pending Hepatitis C Antibody Pending Height (Feet): 5 Height (Inches): 0.00 Weight (Pounds): 125 General Appearance: no apparent distress, alert Cardiovascular: normal rate Respiratory/Chest: normal breath sounds, no respiratory distress Abdominal Exam: normal bowel sounds, non tender, soft Extremities: normal range of motion Jaylyn Orlando N.P. Dec 19, 2016 12:00
[2016-12-19] MEDS: D5 1/2NS 1,000 ML IV SCH (12:24)
--- NOTE | 2016-12-19 12:35 | Consultation ---
Consult Note Consult Note ID CONSULT: Deshawn# [id number] Assessment/Plan ASSESSMENT: 41 y/o female with: // SIRS 2/2 pancreatitis // Leukocytosis - resolved, afebrile, Cx NGTD // Acute on chronic pancreatitis - dec lipase // Dilated pancreatic duct with stent in place r/o malignancy - GI following, plan ERCP - elevated CA 19-9 // Right hepatic lobe cavernous hemangioma x2 - AFP pending // NKDA // Full Code PLAN: - continue to monitor pt off of ABX - ERCP 12/21 per GI - f/u final cultures - f/u hepatitis panel, AFP - monitor CBC, temperatures - monitor BMP Thanks! Will follow SILVIA BULL Dec 19, 2016 12:35
[2016-12-19 15:47] VITALS: BP 109/63
--- NOTE | 2016-12-19 16:26 | Cardiology Report ---
APPROVED REPORT EKG Measurement Heart [id number] Normal sinus rhythm with sinus arrhythmia Normal ECG
--- NOTE | 2016-12-19 16:45 | Consultation ---
DATE OF CONSULTATION: 12/19/2016 INFECTIOUS DISEASE CONSULTATION CONSULTING PHYSICIAN: Cj Molina M.D. REQUESTING PHYSICIAN: Solo Toscano M.D. REASON FOR CONSULTATION: Systemic inflammatory response syndrome. HISTORY OF PRESENT ILLNESS: This is a 42-year-old female with a history of chronic pancreatitis, admitted on 12/17/2016 after a near syncopal event. She complained of pain all over. She initially had leukocytosis that has now resolved and she is afebrile. She has evidence of acute on chronic pancreatitis and lipase is down trending. Workup significant for cavernous hemangiomas in the right hepatic lobe x2 and dilated pancreatic duct with evidence of previous stenting. GI is following and plan to ERCP. Blood cultures no growth to date. No evidence of pneumonia on chest x-ray. Urinalysis is benign. The patient is currently not receiving any antimicrobial therapy and ID now consulted to assist in management. PAST MEDICAL HISTORY: Chronic pancreatitis. PAST SURGICAL HISTORY: None. FAMILY HISTORY: Reviewed and noncontributory. SOCIAL HISTORY: The patient lives locally. Denies any tobacco, alcohol, or illicit drug abuse. ALLERGIES: No known drug allergies. MEDICATIONS: 1. No antibiotics. 2. Protonix. 3. Subcutaneous heparin. REVIEW OF SYSTEMS: As per history of present illness. A 10 systems reviewed, all pertinent positives and negatives noted. PHYSICAL EXAMINATION: GENERAL: No apparent distress. Nontoxic appearing. VITAL SIGNS: Maximum temperature 98.2 degrees, blood pressure 115/70, heart rate 79, respiratory rate 20, and saturating 99% on room air. CARDIOVASCULAR: Regular rate and rhythm. No murmurs. PULMONARY: Clear to auscultation bilaterally. ABDOMEN: Bowel sounds present. Soft and nondistended with mild diffuse tenderness to palpation. EXTREMITIES: No edema. SKIN: No rash. NEUROLOGICAL: Alert and oriented x3. LABORATORY DATA: White blood cell count 7.2, decreased from 16.9, hemoglobin 9.7, and platelets 301,000. Sodium 140, potassium 4.1, chloride 103, bicarbonate 26, BUN 6, and creatinine 0.7. Liver function tests within normal limits. Lipase is 300, decreased to 82. CA-19-9 is 42.87. CEA within normal limits. AFP is pending. Urinalysis is negative. Hepatitis panel pending. MICROBIOLOGY: On 12/17/2016, blood culture no growth to date. IMAGING: Imaging was reviewed. ASSESSMENT: 1. Systemic inflammatory response syndrome, secondary to pancreatitis, now resolved. 2. Leukocytosis, now resolved and afebrile. Cultures, no growth to date. 3. Acute on chronic pancreatitis with downtrending lipase. 4. Dilated pancreatic duct with previous stenting, rule out malignancy. Gastrointestinal is following and plan to endoscopic retrograde cholangiopancreatography. CA-19-9 is elevated. 5. Right hepatic lobe cavernous hemangioma x2. 6. No known drug allergies. 7. Full Code. PLAN: 1. Continue to monitor patient off of antibiotics. 2. Endoscopic retrograde cholangiopancreatography on Saturday per GI. 3. Followup final cultures. 4. Followup hepatitis panel and AFP. 5. Monitor CBC and temperatures. 6. Monitor BMP. Thank you. We will follow. Cj Molina M.D. DR: SCOTTY JOB#: [id number] CC: Solo Toscano M.D.; Fax#: [phone] Delaney M.D; Fax#: [phone]
--- NOTE | 2016-12-19 17:14 | Pulmonology Progress Note ---
Assessment/Plan Problems: (1) Pancreatitis (2) Anemia (3) Liver mass, right lobe Assessment/Plan scheduled for ERCP on saturday clear liquid iv fluids check electrolytes tumor markers increased Subjective ROS Limited/Unobtainable: No Interval Events: on clear liquid Constitutional: Reports: no symptoms Allergies: Coded Allergies: No Known Allergies (Unverified , 12/17/16) Objective Last 24 Hour Vital Signs Date Time Temp Pulse Resp B/P Pulse Ox O2 Delivery O2 Flow Rate FiO2 12/19/16 15:47 99.0 76 20 109/63 99 Room Air 12/19/16 11:55 97.6 79 20 115/70 99 Room Air 12/19/16 07:56 99.7 69 20 97/57 98 Room Air 12/19/16 04:00 97.7 70 18 101/53 99 Room Air 12/19/16 00:00 98.0 59 16 98/56 97 Room Air 12/18/16 20:00 97.4 63 18 119/66 99 Room Air Intake and Output 12/18/16 12/19/16 19:00 07:00 Intake Total 825 ml 75 ml Balance 825 ml 75 ml IV Total 825 ml 75 ml # Voids 1 2 # Bowel Movements 1 General Appearance: WD/WN HEENT: normocephalic, atraumatic Respiratory/Chest: chest wall non-tender, lungs clear Breasts: no masses Cardiovascular: normal peripheral pulses Abdomen: normal bowel sounds, soft, non tender Microbiology Date/Time Source Procedure Growth Status 12/17/16 17:55 Blood Blood Culture - Preliminary NO GROWTH AFTER 24 HOURS Resulted 12/17/16 17:45 Blood Blood Culture - Preliminary NO GROWTH AFTER 24 HOURS Resulted Laboratory Tests 12/19/16 05:20: White Blood Count 7.2, Red Blood Count 3.94L, Hemoglobin 9.7L, Hematocrit 31.5L , Mean Corpuscular Volume 80, Mean Corpuscular Hemoglobin 24.6L, Mean Corpuscular Hemoglobin Concent 30.8L, Red Cell Distribution Width 16.0H, Platelet Count 301, Mean Platelet Volume 8.5, Neutrophils (%) (Auto) 71.7, Lymphocytes (%) (Auto) 17.1L, Monocytes (%) (Auto) 8.9, Eosinophils (%) (Auto) 1.6, Basophils (%) (Auto) 0.7, Sodium Level 140, Potassium Level 4.1, Chloride Level 103, Carbon Dioxide Level 26, Anion Gap 11, Blood Urea Nitrogen 6L, Creatinine 0.7, Estimat Glomerular Filtration Rate > 60, Glucose Level 128H, Calcium Level 9.1, Total Bilirubin 0.3, Aspartate Amino Transf (AST/SGOT) 12, Alanine Aminotransferase (ALT/SGPT) 11, Alkaline Phosphatase 53, Total Protein 7.1, Albumin 4.0, Globulin 3.1, Albumin/Globulin Ratio 1.2, Amylase Level 65, Lipase 82H, Alpha Fetoprotein [Pending], Carcinoembryonic Antigen 1.6, CA 19-9 Antigen 42.83H, Hepatitis A IgM Antibody [Pending], Hepatitis B Surface Antigen [Pending], Hepatitis B Core IgM Antibody [Pending], Hepatitis C Antibody [ Pending] Current Medications Medications (Trade) Dose Ordered Sig/José Luis Route PRN Reason Start Time Stop Time Status Last Admin Dose Admin Acetaminophen (Tylenol) 650 mg Q4H PRN ORAL fever 12/17/16 18:45 01/16/17 18:44 Al Hydroxide/Mg Hydroxide (Mylanta II) 30 ml Q6H PRN ORAL dyspepsia 12/17/16 18:45 01/16/17 18:44 Dextrose (Dextrose 50%) STAT PRN IV Hypoglycemia 12/17/16 18:45 01/16/17 18:44 Dextrose/Sodium Chloride (D5 0.45% NS) 1,000 ml @ 75 mls/hr [id number] IV 12/17/16 21:00 01/16/17 20:59 12/19/16 12:24 Diphenhydramine HCl (Benadryl) 25 mg Q6H PRN ORAL Itching/Pruritis 12/17/16 18:45 01/16/17 18:44 Heparin Sodium (Porcine) (Heparin 5000 units/ml) 5,000 units EVERY 12 HOURS SUBQ 12/17/16 21:00 01/16/17 20:59 12/19/16 08:13 Lorazepam (Ativan 2mg/ml 1ml) 1 mg Q4H PRN IV agitation 12/17/16 18:45 12/24/16 18:44 Metoclopramide HCl (Reglan) 10 mg Q6H PRN IVP servere nauasea 12/17/16 18:45 01/16/17 18:44 Morphine Sulfate (Morphine Sulfate) 2 mg Q4H PRN IVP severe Pain (Pain Scale 7-10) 12/17/16 18:45 12/24/16 18:44 12/18/16 16:27 Nitroglycerin (Ntg) 0.4 mg Q5M X 3 DOSES PRN SL Prn Chest Pain 12/17/16 18:45 01/16/17 18:44 Ondansetron HCl (Zofran) 4 mg Q6H PRN IVP Nausea & Vomiting 12/17/16 18:45 01/16/17 18:44 12/18/16 03:52 Pantoprazole (Protonix) 40 mg DAILY IV 12/18/16 09:00 01/17/17 08:59 12/19/16 08:09 Polyethylene Glycol (Miralax) 17 gm HSPRN PRN ORAL Constipation 12/17/16 18:45 01/16/17 18:44 Promethazine HCl (Phenergan) 25 mg Q8H PRN IV refractory nausea 12/17/16 18:45 01/16/17 18:44 Temazepam (Restoril) 15 mg HSPRN PRN ORAL Insomnia 12/17/16 18:45 12/24/16 18:44 AMINAH TAM Dec 19, 2016 17:14
[2016-12-19 20:13] VITALS: BP 112/69
[2016-12-19] MEDS: Morphine Sulfate 2mg/ml Inj IVP PRN (20:20)
[2016-12-20 00:04] VITALS: BP 109/66
[2016-12-20] MEDS: D5 1/2NS 1,000 ML IV SCH ×3 (01:25→15:40)
[2016-12-20 04:10] VITALS: BP 110/70
[2016-12-20 07:01] LABS: BASOPHILS % (AUTO) 0.8 % (0.0-2.0); EOSINOPHILS % (AUTO) 1.8 % (0.0-3.0); LYMPHOCYTES % (AUTO) 21.3 % (20.0-45.0); MEAN CORPUSCULAR HEMOGLOBIN 24.7 PG (27.0-31.0); MEAN CORPUSCULAR HGB CONC 30.9 G/DL (32.0-36.0); MEAN CORPUSCULAR VOLUME 80 FL (80-99); MEAN PLATELET VOLUME 8.8 FL (6.5-10.1); MONOCYTES % (AUTO) 9.2 % (1.0-10.0); PLATELET COUNT 278 K/UL (150-450); RED BLOOD COUNT 3.83 M/UL (4.20-5.40); RED CELL DISTRIBUTION WIDTH 16.5 % (11.6-14.8); WHITE BLOOD COUNT 7.4 K/UL (4.8-10.8)
[2016-12-20 07:31] LABS: ALANINE AMINOTRANSFERASE 10 U/L (3-33); ALBUMIN/GLOBULIN RATIO 1.3 (1.0-2.7); ANION GAP 12 (5-15); ASPARTATE AMINO TRANSFERASE 10 U/L (5-40); CALCIUM 8.8 mg/dL (8.6-10.2); CARBON DIOXIDE 24 mEQ/L (20-30); CHLORIDE 103 mEQ/L (98-107); CREATININE 0.6 mg/dL (0.5-0.9); GLOMERULAR FILTRATION RATE > 60 mL/min (>60); HEMOLYSIS 2; LIPASE 25 U/L (< 60); POTASSIUM 3.5 mEQ/L (3.4-4.9); SODIUM 139 mEQ/L (135-145); TOTAL PROTEIN 6.7 g/dL (6.6-8.7)
[2016-12-20 08:02] VITALS: BP 102/65
[2016-12-20] MEDS: Morphine Sulfate 2mg/ml Inj IVP PRN ×2 (08:26→22:10)
[2016-12-20] MEDS: Pantoprazole Inj IV SCH (08:26)
[2016-12-20] MEDS: Heparin 5000 units/ml inj SUBQ SCH ×2 (08:34→20:12)
[2016-12-20] MEDS ORDERED: Tubing IV Secondary IV ONE (10:46)
[2016-12-20] MEDS ORDERED: D5 1/2NS 1000ml IV ONE (10:46)
[2016-12-20 11:39] VITALS: BP 103/65
--- NOTE | 2016-12-20 12:57 | GI Progress Note ---
Assessment/Plan Problems: (1) Liver mass, right lobe ICD Codes: R16.0 - Hepatomegaly, not elsewhere classified SNOMED: 081298521 (2) Leukocytosis ICD Codes: D72.829 - Elevated white blood cell count, unspecified SNOMED: 591582271, 319990252 (3) Anemia ICD Codes: D64.9 - Anemia, unspecified SNOMED: 508492292 (4) Sepsis ICD Codes: A41.9 - Sepsis, unspecified organism SNOMED: 07619713 Qualifiers: Qualified Codes: A41.9 - Sepsis, unspecified organism (5) Pancreatitis ICD Codes: K85.90 - Acute pancreatitis without necrosis or infection, unspecified SNOMED: 68180328 Qualifiers: Qualified Codes: K85.90 - Acute pancreatitis without necrosis or infection, unspecified Status: stable Status Narrative Discussed with Dr. Jolly. Assessment/Plan MRI reviewed >> cavernous hemangiomas x 2. Pancreatic duct dilation. elevated lipase >> downtrending elevated CA19-9 >> 42.8 hep panel negative ERCP scheduled for tomorrow. - soft low fat diet, NPO @ [place]. - hold all blood thinners tonight. repeat lipase levels pain mgmt ppi abx fu labs Subjective Subjective abdominal pain improved hunger Objective Last 24 Hour Vital Signs Date Time Temp Pulse Resp B/P Pulse Ox O2 Delivery O2 Flow Rate FiO2 12/20/16 11:39 98.2 68 20 103/65 98 Room Air 12/20/16 08:56 97.7 12/20/16 08:02 97.7 68 20 102/65 98 Room Air 12/20/16 04:10 97.9 88 17 110/70 98 Room Air 12/20/16 00:04 98.1 73 19 109/66 100 Room Air 12/19/16 20:13 98.2 72 18 112/69 97 Room Air 12/19/16 15:47 99.0 76 20 109/63 99 Room Air Intake and Output 12/19/16 12/20/16 19:00 07:00 Intake Total 1405 ml 1140 ml Balance 1405 ml 1140 ml Intake Oral 580 ml 240 ml IV Total 825 ml 900 ml # Voids 3 1 Laboratory Tests Test 12/20/16 05:10 White Blood Count 7.4 K/UL (4.8-10.8) Red Blood Count 3.83 M/UL (4.20-5.40) L Hemoglobin 9.4 G/DL (12.0-16.0) L Hematocrit 30.6 % (37.0-47.0) L Mean Corpuscular Volume 80 FL (80-99) Mean Corpuscular Hemoglobin 24.7 PG (27.0-31.0) L Mean Corpuscular Hemoglobin Concent 30.9 G/DL (32.0-36.0) L Red Cell Distribution Width 16.5 % (11.6-14.8) H Platelet Count 278 K/UL (150-450) Mean Platelet Volume 8.8 FL (6.5-10.1) Neutrophils (%) (Auto) 67.0 % (45.0-75.0) Lymphocytes (%) (Auto) 21.3 % (20.0-45.0) Monocytes (%) (Auto) 9.2 % (1.0-10.0) Eosinophils (%) (Auto) 1.8 % (0.0-3.0) Basophils (%) (Auto) 0.8 % (0.0-2.0) Sodium Level 139 mEQ/L (135-145) Potassium Level 3.5 mEQ/L (3.4-4.9) Chloride Level 103 mEQ/L (98-107) Carbon Dioxide Level 24 mEQ/L (20-30) Anion Gap 12 (5-15) Blood Urea Nitrogen 7 mg/dL (7-23) Creatinine 0.6 mg/dL (0.5-0.9) Estimat Glomerular Filtration Rate > 60 mL/min (>60) Glucose Level 119 mg/dL (74-106) H Calcium Level 8.8 mg/dL (8.6-10.2) Total Bilirubin 0.3 mg/dL (0.0-1.2) Aspartate Amino Transf (AST/SGOT) 10 U/L (5-40) Alanine Aminotransferase (ALT/SGPT) 10 U/L (3-33) Alkaline Phosphatase 49 U/L (35-104) Total Protein 6.7 g/dL (6.6-8.7) Albumin 3.8 g/dL (3.5-5.2) Globulin 2.9 g/dL Albumin/Globulin Ratio 1.3 (1.0-2.7) Lipase 25 U/L (< 60) Height (Feet): 5 Height (Inches): 0.00 Weight (Pounds): 125 General Appearance: no apparent distress, alert Cardiovascular: normal rate Respiratory/Chest: normal breath sounds, no respiratory distress Abdominal Exam: normal bowel sounds, non tender, soft Extremities: normal range of motion Jaylyn Orlando N.P. Dec 20, 2016 12:57
--- NOTE | 2016-12-20 15:04 | Pulmonology Progress Note ---
Assessment/Plan Problems: (1) Pancreatitis (2) Anemia (3) Liver mass, right lobe Assessment/Plan scheduled for ERCP on saturday clear liquid iv fluids check electrolytes tumor markers increased Subjective ROS Limited/Unobtainable: No Constitutional: Reports: no symptoms HEENT: Repors: no symptoms Respiratory: Reports: no symptoms Allergies: Coded Allergies: No Known Allergies (Unverified , 12/17/16) Objective Last 24 Hour Vital Signs Date Time Temp Pulse Resp B/P Pulse Ox O2 Delivery O2 Flow Rate FiO2 12/20/16 11:39 98.2 68 20 103/65 98 Room Air 12/20/16 08:56 97.7 12/20/16 08:02 97.7 68 20 102/65 98 Room Air 12/20/16 04:10 97.9 88 17 110/70 98 Room Air 12/20/16 00:04 98.1 73 19 109/66 100 Room Air 12/19/16 20:13 98.2 72 18 112/69 97 Room Air 12/19/16 15:47 99.0 76 20 109/63 99 Room Air Intake and Output 12/19/16 12/20/16 19:00 07:00 Intake Total 1405 ml 1140 ml Balance 1405 ml 1140 ml Intake Oral 580 ml 240 ml IV Total 825 ml 900 ml # Voids 3 1 General Appearance: WD/WN HEENT: normocephalic, atraumatic Breasts: no masses Cardiovascular: normal peripheral pulses, regular rhythm Abdomen: normal bowel sounds, soft, non tender Genitourinary: normal external genitalia Extremities: no cyanosis Skin: no rash Microbiology Date/Time Source Procedure Growth Status 12/17/16 17:55 Blood Blood Culture - Preliminary NO GROWTH AFTER 48 HOURS Resulted 12/17/16 17:45 Blood Blood Culture - Preliminary NO GROWTH AFTER 48 HOURS Resulted Laboratory Tests 12/20/16 05:10: White Blood Count 7.4, Red Blood Count 3.83L, Hemoglobin 9.4L, Hematocrit 30.6L , Mean Corpuscular Volume 80, Mean Corpuscular Hemoglobin 24.7L, Mean Corpuscular Hemoglobin Concent 30.9L, Red Cell Distribution Width 16.5H, Platelet Count 278, Mean Platelet Volume 8.8, Neutrophils (%) (Auto) 67.0, Lymphocytes (%) (Auto) 21.3, Monocytes (%) (Auto) 9.2, Eosinophils (%) (Auto) 1.8, Basophils (%) (Auto) 0.8, Sodium Level 139, Potassium Level 3.5, Chloride Level 103, Carbon Dioxide Level 24, Anion Gap 12, Blood Urea Nitrogen 7, Creatinine 0.6, Estimat Glomerular Filtration Rate > 60, Glucose Level 119H, Calcium Level 8.8, Total Bilirubin 0.3, Aspartate Amino Transf (AST/SGOT) 10, Alanine Aminotransferase (ALT/SGPT) 10, Alkaline Phosphatase 49, Total Protein 6.7, Albumin 3.8, Globulin 2.9, Albumin/Globulin Ratio 1.3, Lipase 25 Current Medications Medications (Trade) Dose Ordered Sig/José Luis Route PRN Reason Start Time Stop Time Status Last Admin Dose Admin Acetaminophen (Tylenol) 650 mg Q4H PRN ORAL fever 12/17/16 18:45 01/16/17 18:44 Al Hydroxide/Mg Hydroxide (Mylanta II) 30 ml Q6H PRN ORAL dyspepsia 12/17/16 18:45 01/16/17 18:44 Dextrose (Dextrose 50%) STAT PRN IV Hypoglycemia 12/17/16 18:45 01/16/17 18:44 Dextrose/Sodium Chloride (D5 0.45% NS) 1,000 ml @ 75 mls/hr [id number] IV 12/17/16 21:00 01/16/17 20:59 12/20/16 12:34 Diphenhydramine HCl (Benadryl) 25 mg Q6H PRN ORAL Itching/Pruritis 12/17/16 18:45 01/16/17 18:44 Heparin Sodium (Porcine) (Heparin 5000 units/ml) 5,000 units EVERY 12 HOURS SUBQ 12/17/16 21:00 01/16/17 20:59 12/20/16 08:34 Lorazepam (Ativan 2mg/ml 1ml) 1 mg Q4H PRN IV agitation 12/17/16 18:45 12/24/16 18:44 Metoclopramide HCl (Reglan) 10 mg Q6H PRN IVP servere nauasea 12/17/16 18:45 01/16/17 18:44 Morphine Sulfate (Morphine Sulfate) 2 mg Q4H PRN IVP severe Pain (Pain Scale 7-10) 12/17/16 18:45 12/24/16 18:44 12/20/16 08:26 Nitroglycerin (Ntg) 0.4 mg Q5M X 3 DOSES PRN SL Prn Chest Pain 12/17/16 18:45 01/16/17 18:44 Ondansetron HCl (Zofran) 4 mg Q6H PRN IVP Nausea & Vomiting 12/17/16 18:45 01/16/17 18:44 12/18/16 03:52 Pantoprazole (Protonix) 40 mg DAILY IV 12/18/16 09:00 01/17/17 08:59 12/20/16 08:26 Polyethylene Glycol (Miralax) 17 gm HSPRN PRN ORAL Constipation 12/17/16 18:45 01/16/17 18:44 Promethazine HCl (Phenergan) 25 mg Q8H PRN IV refractory nausea 12/17/16 18:45 01/16/17 18:44 Temazepam (Restoril) 15 mg HSPRN PRN ORAL Insomnia 12/17/16 18:45 12/24/16 18:44 AMINAH TAM Dec 20, 2016 15:04
[2016-12-20 15:56] VITALS: BP 116/77
[2016-12-20 20:31] VITALS: BP 117/74
--- NOTE | 2016-12-20 20:51 | Infectious Diseases Prog Note ---
Assessment/Plan Assessment/Plan ASSESSMENT: 1. Systemic inflammatory response syndrome, secondary to pancreatitis, now resolved. Viral hepatitis Screen negative. 2. Leukocytosis, now resolved and afebrile. blood Cultures 12/17/16, no growth to date. 3. Acute on chronic pancreatitis with downtrending lipase. 4. Dilated pancreatic duct with previous stenting, rule out malignancy. Gastrointestinal is following and plan to endoscopic retrograde cholangiopancreatography. CA-19-9 is elevated. 5. Right hepatic lobe cavernous hemangioma x2. 6. No known drug allergies. 7. Full Code. PLAN: 1. Continue to monitor patient off of antibiotics. 2. Endoscopic retrograde cholangiopancreatography on Saturday per GI. 3. Followup final cultures. 4. Monitor CBC and temperatures. 5. Monitor BMP. 6. f/u AFP Subjective Constitutional: Reports: no symptoms Allergies: Coded Allergies: No Known Allergies (Unverified , 12/17/16) Objective Vital Signs Last 24 Hour Vital Signs Date Time Temp Pulse Resp B/P Pulse Ox O2 Delivery O2 Flow Rate FiO2 12/20/16 20:31 98.1 85 18 117/74 98 Room Air 12/20/16 15:56 98.0 74 20 116/77 100 Room Air 12/20/16 11:39 98.2 68 20 103/65 98 Room Air 12/20/16 08:56 97.7 12/20/16 08:02 97.7 68 20 102/65 98 Room Air 12/20/16 04:10 97.9 88 17 110/70 98 Room Air 12/20/16 00:04 98.1 73 19 109/66 100 Room Air Height (Feet): 5 Height (Inches): 0.00 Weight (Pounds): 125 General Appearance: no acute distress Laboratory Tests Test 12/20/16 05:10 White Blood Count 7.4 K/UL (4.8-10.8) Red Blood Count 3.83 M/UL (4.20-5.40) L Hemoglobin 9.4 G/DL (12.0-16.0) L Hematocrit 30.6 % (37.0-47.0) L Mean Corpuscular Volume 80 FL (80-99) Mean Corpuscular Hemoglobin 24.7 PG (27.0-31.0) L Mean Corpuscular Hemoglobin Concent 30.9 G/DL (32.0-36.0) L Red Cell Distribution Width 16.5 % (11.6-14.8) H Platelet Count 278 K/UL (150-450) Mean Platelet Volume 8.8 FL (6.5-10.1) Neutrophils (%) (Auto) 67.0 % (45.0-75.0) Lymphocytes (%) (Auto) 21.3 % (20.0-45.0) Monocytes (%) (Auto) 9.2 % (1.0-10.0) Eosinophils (%) (Auto) 1.8 % (0.0-3.0) Basophils (%) (Auto) 0.8 % (0.0-2.0) Sodium Level 139 mEQ/L (135-145) Potassium Level 3.5 mEQ/L (3.4-4.9) Chloride Level 103 mEQ/L (98-107) Carbon Dioxide Level 24 mEQ/L (20-30) Anion Gap 12 (5-15) Blood Urea Nitrogen 7 mg/dL (7-23) Creatinine 0.6 mg/dL (0.5-0.9) Estimat Glomerular Filtration Rate > 60 mL/min (>60) Glucose Level 119 mg/dL (74-106) H Calcium Level 8.8 mg/dL (8.6-10.2) Total Bilirubin 0.3 mg/dL (0.0-1.2) Aspartate Amino Transf (AST/SGOT) 10 U/L (5-40) Alanine Aminotransferase (ALT/SGPT) 10 U/L (3-33) Alkaline Phosphatase 49 U/L (35-104) Total Protein 6.7 g/dL (6.6-8.7) Albumin 3.8 g/dL (3.5-5.2) Globulin 2.9 g/dL Albumin/Globulin Ratio 1.3 (1.0-2.7) Lipase 25 U/L (< 60) Current Medications Medications (Trade) Dose Ordered Sig/José Luis Route PRN Reason Start Time Stop Time Status Last Admin Dose Admin Acetaminophen (Tylenol) 650 mg Q4H PRN ORAL fever 12/17/16 18:45 01/16/17 18:44 Al Hydroxide/Mg Hydroxide (Mylanta II) 30 ml Q6H PRN ORAL dyspepsia 12/17/16 18:45 01/16/17 18:44 Dextrose (Dextrose 50%) STAT PRN IV Hypoglycemia 12/17/16 18:45 01/16/17 18:44 Dextrose/Sodium Chloride (D5 0.45% NS) 1,000 ml @ 75 mls/hr [id number] IV 12/17/16 21:00 01/16/17 20:59 12/20/16 12:34 Diphenhydramine HCl (Benadryl) 25 mg Q6H PRN ORAL Itching/Pruritis 12/17/16 18:45 01/16/17 18:44 Heparin Sodium (Porcine) (Heparin 5000 units/ml) 5,000 units EVERY 12 HOURS SUBQ 12/17/16 21:00 01/16/17 20:59 12/20/16 20:12 Lorazepam (Ativan 2mg/ml 1ml) 1 mg Q4H PRN IV agitation 12/17/16 18:45 12/24/16 18:44 Metoclopramide HCl (Reglan) 10 mg Q6H PRN IVP servere nauasea 12/17/16 18:45 01/16/17 18:44 Morphine Sulfate (Morphine Sulfate) 2 mg Q4H PRN IVP severe Pain (Pain Scale 7-10) 12/17/16 18:45 12/24/16 18:44 12/20/16 08:26 Nitroglycerin (Ntg) 0.4 mg Q5M X 3 DOSES PRN SL Prn Chest Pain 12/17/16 18:45 01/16/17 18:44 Ondansetron HCl (Zofran) 4 mg Q6H PRN IVP Nausea & Vomiting 12/17/16 18:45 01/16/17 18:44 12/18/16 03:52 Pantoprazole (Protonix) 40 mg DAILY IV 12/18/16 09:00 01/17/17 08:59 12/20/16 08:26 Polyethylene Glycol (Miralax) 17 gm HSPRN PRN ORAL Constipation 12/17/16 18:45 01/16/17 18:44 Promethazine HCl (Phenergan) 25 mg Q8H PRN IV refractory nausea 12/17/16 18:45 01/16/17 18:44 Temazepam (Restoril) 15 mg HSPRN PRN ORAL Insomnia 12/17/16 18:45 12/24/16 18:44 Victoriano Giron M.D. Dec 20, 2016 20:51
[2016-12-21] VITALS (12 sets, daily range): BP systolic 105–142; BP diastolic 64–89
[2016-12-21] MEDS: Morphine Sulfate 2mg/ml Inj IVP PRN ×2 (01:59→10:38)
[2016-12-21] MEDS: D5 1/2NS 1,000 ML IV SCH ×2 (02:03→10:40)
[2016-12-21 06:44] LABS: BASOPHILS % (AUTO) 0.8 % (0.0-2.0); LYMPHOCYTES % (AUTO) 17.5 % (20.0-45.0); MEAN CORPUSCULAR HEMOGLOBIN 24.5 PG (27.0-31.0); MEAN CORPUSCULAR HGB CONC 30.6 G/DL (32.0-36.0); MEAN CORPUSCULAR VOLUME 80 FL (80-99); MEAN PLATELET VOLUME 9.3 FL (6.5-10.1); MONOCYTES % (AUTO) 8.8 % (1.0-10.0); NEUTROPHILS % (AUTO) 70.8 % (45.0-75.0); PLATELET COUNT 310 K/UL (150-450); RED BLOOD COUNT 3.87 M/UL (4.20-5.40); RED CELL DISTRIBUTION WIDTH 16.3 % (11.6-14.8)
[2016-12-21 06:47] LABS: INR 0.9 (0.9-1.1); PROTHROMBIN TIME 9.8 SEC (9.30-11.50)
[2016-12-21] MEDS ORDERED: Iothalamate Meglumine 60% 30ML INJ ONE (06:48)
[2016-12-21] MEDS ORDERED: Indomethacin 50mg Supp ONE (06:49)
[2016-12-21] MEDS ORDERED: Tubing IV Extension IV ONE (06:55)
[2016-12-21] MEDS ORDERED: NS 550ML IV ONE (06:55)
[2016-12-21 07:08] LABS: ANION GAP 11 (5-15); CALCIUM 8.7 mg/dL (8.6-10.2); CARBON DIOXIDE 24 mEQ/L (20-30); CHLORIDE 105 mEQ/L (98-107); CREATININE 0.7 mg/dL (0.5-0.9); GLOMERULAR FILTRATION RATE > 60 mL/min (>60); HEMOLYSIS 1; POTASSIUM 3.5 mEQ/L (3.4-4.9); SODIUM 140 mEQ/L (135-145)
--- NOTE | 2016-12-21 07:10 | Pre-Procedure Note/Attestation ---
Pre-Procedure Note/Attestation Complete Prior to Procedure Planned Procedure: not applicable Procedure Narrative: ercp Indications for Procedure Pre-Operative Diagnosis: pancreatitis Attestation I attest that I discussed the nature of the procedure; its benefits; risks and complications; and alternatives (and the risks and benefits of such alternatives ), prior to the procedure, with the patient (or the patient's legal sales representative education courses). I attest that, if there was a reasonable possibility of needing a blood transfusion, the patient (or the patient's legal sales representative education courses) was given the [facility] standardized written summary, pursuant to the [place] Blood Safety Act ([place] Health and Safety Code # 1645, as amended). I attest that I re-evaluated the patient just prior to the surgery and that there has been no change in the patient's H&P, except as documented below: MARY MOSES Dec 21, 2016 07:10
--- NOTE | 2016-12-21 07:35 | Anethesia Preoperative Eval ---
Anesthesia Pre-op PMH/ROS General Date of Evaluation: Dec 21, 2016 Time of Evaluation: 07:00 ASA Score: ASA 2 Mallampati Score Class I : Soft palate, uvula, fauces, pillars visible Class II: Soft palate, uvula, fauces visible Class III: Soft palate, base of uvula visible Class IV: Only hard plate visible Mallampati Classification: Class II Family History: no anesthesia problems Allergies: Coded Allergies: No Known Allergies (Unverified , 12/17/16) Anesthesia Pre-op Phys. Exam Physician Exam Last Vital Signs Date Time Temp Pulse Resp B/P Pulse Ox O2 Delivery O2 Flow Rate FiO2 12/21/16 04:00 97.9 61 18 112/68 98 Room Air Constitutional: NAD Neurologic: CN 2-12 intact Cardiovascular: RRR Respiratory: CTA Airway Exam Mallampati Score: Class II MO: full ROM: full Teeth: intact Anesthesia Pre-op A/P Labs Hematology Test 12/21/16 05:50 White Blood Count 9.0 K/UL (4.8-10.8) Red Blood Count 3.87 M/UL (4.20-5.40) L Hemoglobin 9.5 G/DL (12.0-16.0) L Hematocrit 31.0 % (37.0-47.0) L Mean Corpuscular Volume 80 FL (80-99) Mean Corpuscular Hemoglobin 24.5 PG (27.0-31.0) L Mean Corpuscular Hemoglobin Concent 30.6 G/DL (32.0-36.0) L Red Cell Distribution Width 16.3 % (11.6-14.8) H Platelet Count 310 K/UL (150-450) Mean Platelet Volume 9.3 FL (6.5-10.1) Neutrophils (%) (Auto) 70.8 % (45.0-75.0) Lymphocytes (%) (Auto) 17.5 % (20.0-45.0) L Monocytes (%) (Auto) 8.8 % (1.0-10.0) Eosinophils (%) (Auto) 2.0 % (0.0-3.0) Basophils (%) (Auto) 0.8 % (0.0-2.0) Coagulation Test 12/21/16 05:50 Prothrombin Time 9.8 SEC (9.30-11.50) Prothromb Time International Ratio 0.9 (0.9-1.1) Activated Partial Thromboplast Time 27 SEC (23-33) Chemistry Test 12/21/16 05:50 Sodium Level 140 mEQ/L (135-145) Potassium Level 3.5 mEQ/L (3.4-4.9) Chloride Level 105 mEQ/L (98-107) Carbon Dioxide Level 24 mEQ/L (20-30) Anion Gap 11 (5-15) Blood Urea Nitrogen 6 mg/dL (7-23) L Creatinine 0.7 mg/dL (0.5-0.9) Estimat Glomerular Filtration Rate > 60 mL/min (>60) Glucose Level 124 mg/dL (74-106) H Calcium Level 8.7 mg/dL (8.6-10.2) Risk Assessment & Plan Plan: MAC sedation Status Change Before Surgery: No Pre-Antibiotics Given Within 1 Hr of Incision: No Daniel Ruiz M.D. Dec 21, 2016 07:35
--- NOTE | 2016-12-21 07:39 | Pulmonology Progress Note ---
Assessment/Plan Assessment/Plan ASSESSMENT possible sepsis 2 to pancreatitis acute on chronic pancreatitis dilated pancreatic duct ( with previous stenting) R hepatic lobe cavernous hemangioma x2 anemia PLAN OF CARE [facility] floor IVF s/p ERCP today with stent removal ( was there for 2 yrs) GI follows CT, MRI, US results noted lipase down to normal elevated CA 19-9-42.83 with AFP and CEA WNL hepatitis panel negative pain management PPI DVT prophylaxis blood cx negative preliminary ID follows keep off abx as per ID recommendations a/emetic prn resume diet -low fat after ERCP monitor HH transfuse prn, HH remain at baseline GI cleared for dc dc today case discussed and evaluated by supervising physician Subjective Allergies: Coded Allergies: No Known Allergies (Unverified , 12/17/16) Subjective afebrile, leukocytosis resolved lipase down to normal ERCP this am done,stent removed ( was for 2 yrs) Objective Last 24 Hour Vital Signs Date Time Temp Pulse Resp B/P Pulse Ox O2 Delivery O2 Flow Rate FiO2 12/21/16 04:00 97.9 61 18 112/68 98 Room Air 12/21/16 00:32 98.1 61 19 109/64 97 Room Air 12/20/16 20:31 98.1 85 18 117/74 98 Room Air 12/20/16 15:56 98.0 74 20 116/77 100 Room Air 12/20/16 11:39 98.2 68 20 103/65 98 Room Air 12/20/16 08:56 97.7 12/20/16 08:02 97.7 68 20 102/65 98 Room Air Intake and Output 12/20/16 12/21/16 19:00 07:00 Intake Total 2470.0 ml 1140 ml Balance 2470.0 ml 1140 ml Intake Oral 1570 ml 240 ml IV Total 900.0 ml 900 ml # Voids 4 2 # Bowel Movements 1 General Appearance: no acute distress, other - A/A/O x 4 Chinese speaking female HEENT: normocephalic, atraumatic, anicteric, mucous membranes moist Respiratory/Chest: normal breath sounds, no respiratory distress, no accessory muscle use Cardiovascular: normal peripheral pulses, normal rate, no JVD Abdomen: normal bowel sounds, soft, non tender, non distended Genitourinary: normal external genitalia Extremities: no edema, pedal pulses normal Neurologic/Psychiatric: alert, oriented x 3, responsive Musculoskeletal: normal muscle bulk Laboratory Tests 12/21/16 05:50: White Blood Count 9.0, Red Blood Count 3.87L, Hemoglobin 9.5L, Hematocrit 31.0L , Mean Corpuscular Volume 80, Mean Corpuscular Hemoglobin 24.5L, Mean Corpuscular Hemoglobin Concent 30.6L, Red Cell Distribution Width 16.3H, Platelet Count 310, Mean Platelet Volume 9.3, Neutrophils (%) (Auto) 70.8, Lymphocytes (%) (Auto) 17.5L, Monocytes (%) (Auto) 8.8, Eosinophils (%) (Auto) 2.0, Basophils (%) (Auto) 0.8, Prothrombin Time 9.8, Prothromb Time International Ratio 0.9, Activated Partial Thromboplast Time 27, Sodium Level 140, Potassium Level 3.5, Chloride Level 105, Carbon Dioxide Level 24, Anion Gap 11, Blood Urea Nitrogen 6L, Creatinine 0.7, Estimat Glomerular Filtration Rate > 60, Glucose Level 124H, Calcium Level 8.7 Current Medications Medications (Trade) Dose Ordered Sig/José Luis Route PRN Reason Start Time Stop Time Status Last Admin Dose Admin Acetaminophen (Tylenol) 650 mg Q4H PRN ORAL fever 12/17/16 18:45 01/16/17 18:44 Al Hydroxide/Mg Hydroxide (Mylanta II) 30 ml Q6H PRN ORAL dyspepsia 12/17/16 18:45 01/16/17 18:44 Dextrose (Dextrose 50%) STAT PRN IV Hypoglycemia 12/17/16 18:45 01/16/17 18:44 Dextrose/Sodium Chloride (D5 0.45% NS) 1,000 ml @ 75 mls/hr [id number] IV 12/17/16 21:00 01/16/17 20:59 12/21/16 02:03 Diphenhydramine HCl (Benadryl) 25 mg Q6H PRN ORAL Itching/Pruritis 12/17/16 18:45 01/16/17 18:44 Heparin Sodium (Porcine) (Heparin 5000 units/ml) 5,000 units EVERY 12 HOURS SUBQ 12/17/16 21:00 01/16/17 20:59 12/20/16 20:12 Lorazepam (Ativan 2mg/ml 1ml) 1 mg Q4H PRN IV agitation 12/17/16 18:45 12/24/16 18:44 Metoclopramide HCl (Reglan) 10 mg Q6H PRN IVP servere nauasea 12/17/16 18:45 01/16/17 18:44 Morphine Sulfate (Morphine Sulfate) 2 mg Q4H PRN IVP severe Pain (Pain Scale 7-10) 12/17/16 18:45 12/24/16 18:44 12/21/16 01:59 Nitroglycerin (Ntg) 0.4 mg Q5M X 3 DOSES PRN SL Prn Chest Pain 12/17/16 18:45 01/16/17 18:44 Ondansetron HCl (Zofran) 4 mg Q6H PRN IVP Nausea & Vomiting 12/17/16 18:45 01/16/17 18:44 12/18/16 03:52 Pantoprazole (Protonix) 40 mg DAILY IV 12/18/16 09:00 01/17/17 08:59 12/20/16 08:26 Polyethylene Glycol (Miralax) 17 gm HSPRN PRN ORAL Constipation 12/17/16 18:45 01/16/17 18:44 Promethazine HCl (Phenergan) 25 mg Q8H PRN IV refractory nausea 12/17/16 18:45 01/16/17 18:44 Temazepam (Restoril) 15 mg HSPRN PRN ORAL Insomnia 12/17/16 18:45 12/24/16 18:44 Santos JulianFransisca hwang NP Dec 21, 2016 07:39
--- NOTE | 2016-12-21 08:08 | Endoscopy Procedure Note ---
Endoscopy Procedure Note Indication for Procedure: pancreatitis Procedures Performed: ERCP Operative Findings/Diagnosis: stent removal Specimen: none Pt Tolerated Procedure Well: Yes Estimated Blood Loss: none Anesthesiologist: see chart Anesthesia: MAC Implant(s) used?: No 50 yrs or older w/o bx or poly: Not Applicable 10yrs. F/U not recommended: Not Applicable MARY MOSES Dec 21, 2016 08:08
--- NOTE | 2016-12-21 08:22 | Immediate Post-Op Evaluation ---
Immediate Post-Op Evalulation Immediate Post-Op Evalulation Date of Evaluation: Dec 21, 2016 Time of Evaluation: 08:15 IV Fluids: 400 Estimated Blood Loss: 0 Blood Pressure Systolic: 122 Blood Pressure Diastolic: 75 Pulse Rate: 84 Respiratory Rate: 16 O2 Sat by Pulse Oximetry: 100 Temperature (Fahrenheit): 97.1 Pain Score (1-10): 0 Nausea: No Vomiting: No Patient Status: awake, reacts Hydration Status: adequate Given Within 1 Hr of Incision: Daniel Gillespie M.D. Dec 21, 2016 08:22
[2016-12-21] MEDS ORDERED: fentaNYL 100 mcg/2 mL IV PRN (08:41)
[2016-12-21] MEDS ORDERED: fentaNYL 100 mcg/2 mL IV ONE ×2 (08:42→15:34)
[2016-12-21] MEDS: Pantoprazole Inj IV SCH (10:31)
[2016-12-21] MEDS: Heparin 5000 units/ml inj SUBQ SCH (10:35)
--- NOTE | 2016-12-21 11:05 | Diagnostic Imaging Report ---
Indication: ABD PAIN intraoperative imaging Technique: Intraoperative images Comparison: None Findings: Single image demonstrates a plastic endobiliary stent in the right upper quadrant Impression: Intraoperative imaging, as described
--- NOTE | 2016-12-21 12:30 | Procedure Note ---
DATE OF PROCEDURE: 12/21/2016 SURGEON: Mayank Jolly M.D. PROCEDURE: ERCP with removal of the pancreatic stent. ANESTHESIA: See anesthesia sheet. INSTRUMENT: ERCP scope. INDICATION: Pancreatic duct stent. REASON FOR PROCEDURE: The procedure, risks, benefits, and possible consequences, including hemorrhage, aspiration, perforation and infection, and alternative treatments, were explained to the patient/legal guardian by Dr. Mayank Jolly and the patient/legal guardian understood and accepted these risks. DESCRIPTION OF PROCEDURE: After informed consent was obtained and the patient was adequately sedated, ERCP scope was advanced from the mouth into the second portion of duodenum. The stent was seen to minor ampulla. Most probably, the patient has pancreatic lesion stent. This stent apparently has been there for two years. using a snare the stent was removed. Some pus cannot from the removal of the stent. Then, we used about half an hour trying different catheters to get back in the pancreatic duct, but we could not. There was most probably some stricture at the opening. So, we after half an hour trying we gave up. The procedure was terminated. SUMMARY OF FINDINGS: 1. Most probably the patient has a pancreatic divisum and there was a stent in the minor ampulla. 2. Status stent removal. 3. Unable to recannulate the pancreatic duct at this time. RECOMMENDATIONS: The patient to be observed, monitor labs if the pancreatitis does not we will start feeding the patient and most probably, discharged and follow as an outpatient. Mayank Jolly M.D. DR: STEPH JOB#: [id number] CC: RUBEN
[2016-12-21] MEDS ORDERED: Propofol 10mg/ml 20ml IV ONE (15:34)
[2016-12-21] MEDS ORDERED: D5 1/2NS 1000ml IV ONE (15:34)
[2016-12-21] MEDS ORDERED: Midazolam 2mg/2ml Inj ONE (15:34)
--- NOTE | 2016-12-21 15:56 | Infectious Diseases Prog Note ---
Assessment/Plan Assessment/Plan ASSESSMENT: 1. Systemic inflammatory response syndrome, secondary to pancreatitis (dilated PD) now resolved, to Endoscopic retrograde cholangiopancreatography and removal of PD stent today. Viral hepatitis Screen negative. 2. Leukocytosis, now resolved and afebrile. blood Cultures 12/17/16, no growth to date, u/a on 12/17/16 negative. 3. Acute on chronic pancreatitis with downtrending lipase. 4. Dilated pancreatic duct with previous stenting, rule out malignancy. Gastrointestinal is following and plan to endoscopic retrograde cholangiopancreatography. CA-19-9 is elevated at 42.8. CEA and AFP wnl 5. Right hepatic lobe cavernous hemangioma x2. 6. No known drug allergies. 7. Full Code. PLAN: 1. Continue to monitor patient off of antibiotics. 2. Followup final cultures. 4. Monitor CBC and temperatures. 5. Monitor BMP and LFTs. Subjective Constitutional: Reports: no symptoms Gastrointestinal/Abdominal: Reports: other Allergies: Coded Allergies: No Known Allergies (Unverified , 12/17/16) All Systems: reviewed and negative except above Objective Vital Signs Last 24 Hour Vital Signs Date Time Temp Pulse Resp B/P Pulse Ox O2 Delivery O2 Flow Rate FiO2 12/21/16 12:00 97.9 69 18 105/67 Room Air 12/21/16 11:08 97.7 12/21/16 09:30 97.7 61 18 115/76 96 Room Air 12/21/16 09:13 97.4 12/21/16 08:55 97.4 60 13 124/75 96 Room Air 12/21/16 08:40 59 15 124/75 96 Room Air 12/21/16 08:30 62 16 122/82 97 Room Air 12/21/16 08:28 55 13 132/89 100 Nasal Cannula 3.0 12/21/16 08:22 84 16 100 12/21/16 08:20 56 14 117/78 100 Nasal Cannula 3.0 12/21/16 08:15 61 15 122/75 100 Nasal Cannula 3.0 12/21/16 08:10 63 13 127/86 100 Nasal Cannula 3.0 12/21/16 08:03 97.7 60 14 142/86 100 Nasal Cannula 3.0 12/21/16 04:00 97.9 61 18 112/68 98 Room Air 12/21/16 00:32 98.1 61 19 109/64 97 Room Air 12/20/16 20:31 98.1 85 18 117/74 98 Room Air 12/20/16 15:56 98.0 74 20 116/77 100 Room Air Height (Feet): 5 Height (Inches): 5.00 Weight (Pounds): 125 Objective General Appearance: no apparent distress, alert Cardiovascular: normal rate Respiratory/Chest: normal breath sounds, no respiratory distress Abdominal Exam: normal bowel sounds, non tender, soft Extremities: normal range of motion Laboratory Tests Test 12/21/16 05:50 White Blood Count 9.0 K/UL (4.8-10.8) Red Blood Count 3.87 M/UL (4.20-5.40) L Hemoglobin 9.5 G/DL (12.0-16.0) L Hematocrit 31.0 % (37.0-47.0) L Mean Corpuscular Volume 80 FL (80-99) Mean Corpuscular Hemoglobin 24.5 PG (27.0-31.0) L Mean Corpuscular Hemoglobin Concent 30.6 G/DL (32.0-36.0) L Red Cell Distribution Width 16.3 % (11.6-14.8) H Platelet Count 310 K/UL (150-450) Mean Platelet Volume 9.3 FL (6.5-10.1) Neutrophils (%) (Auto) 70.8 % (45.0-75.0) Lymphocytes (%) (Auto) 17.5 % (20.0-45.0) L Monocytes (%) (Auto) 8.8 % (1.0-10.0) Eosinophils (%) (Auto) 2.0 % (0.0-3.0) Basophils (%) (Auto) 0.8 % (0.0-2.0) Prothrombin Time 9.8 SEC (9.30-11.50) Prothromb Time International Ratio 0.9 (0.9-1.1) Activated Partial Thromboplast Time 27 SEC (23-33) Sodium Level 140 mEQ/L (135-145) Potassium Level 3.5 mEQ/L (3.4-4.9) Chloride Level 105 mEQ/L (98-107) Carbon Dioxide Level 24 mEQ/L (20-30) Anion Gap 11 (5-15) Blood Urea Nitrogen 6 mg/dL (7-23) L Creatinine 0.7 mg/dL (0.5-0.9) Estimat Glomerular Filtration Rate > 60 mL/min (>60) Glucose Level 124 mg/dL (74-106) H Calcium Level 8.7 mg/dL (8.6-10.2) Current Medications Medications (Trade) Dose Ordered Sig/José Luis Route PRN Reason Start Time Stop Time Status Last Admin Dose Admin Acetaminophen (Tylenol) 650 mg Q4H PRN ORAL fever 12/17/16 18:45 01/16/17 18:44 12/21/16 15:12 Al Hydroxide/Mg Hydroxide (Mylanta II) 30 ml Q6H PRN ORAL dyspepsia 12/17/16 18:45 01/16/17 18:44 Dextrose (Dextrose 50%) STAT PRN IV Hypoglycemia 12/17/16 18:45 01/16/17 18:44 Dextrose/Sodium Chloride (D5 0.45% NS) 1,000 ml @ 75 mls/hr [id number] IV 12/17/16 21:00 01/16/17 20:59 12/21/16 10:40 Diphenhydramine HCl (Benadryl) 25 mg Q6H PRN ORAL Itching/Pruritis 12/17/16 18:45 01/16/17 18:44 Heparin Sodium (Porcine) (Heparin 5000 units/ml) 5,000 units EVERY 12 HOURS SUBQ 12/17/16 21:00 01/16/17 20:59 12/21/16 10:35 Lorazepam (Ativan 2mg/ml 1ml) 1 mg Q4H PRN IV agitation 12/17/16 18:45 12/24/16 18:44 Metoclopramide HCl (Reglan) 10 mg Q6H PRN IVP servere [place] 12/17/16 18:45 01/16/17 18:44 Morphine Sulfate (Morphine Sulfate) 2 mg Q4H PRN IVP severe Pain (Pain Scale 7-10) 12/17/16 18:45 12/24/16 18:44 12/21/16 10:38 Nitroglycerin (Ntg) 0.4 mg Q5M X 3 DOSES PRN SL Prn Chest Pain 12/17/16 18:45 01/16/17 18:44 Ondansetron HCl (Zofran) 4 mg Q6H PRN IVP Nausea & Vomiting 12/17/16 18:45 01/16/17 18:44 12/18/16 03:52 Pantoprazole (Protonix) 40 mg DAILY IV 12/18/16 09:00 01/17/17 08:59 12/21/16 10:31 Polyethylene Glycol (Miralax) 17 gm HSPRN PRN ORAL Constipation 12/17/16 18:45 01/16/17 18:44 Promethazine HCl (Phenergan) 25 mg Q8H PRN IV refractory nausea 12/17/16 18:45 01/16/17 18:44 Temazepam (Restoril) 15 mg HSPRN PRN ORAL Insomnia 12/17/16 18:45 12/24/16 18:44 Victoriano Giron M.D. Dec 21, 2016 15:56
--- NOTE | 2016-12-24 12:26 | Discharge Summary ---
Discharge Summary Hospital Course Date of Admission Dec 17, 2016 at 17:37 Date of Discharge Dec 21, 2016 at 15:35 Admitting Diagnosis sepsis HPI Alena Bob is a 41 year old female who was admitted on Dec 17, 2016 at 17:37 for Sepsis Hospital Course dc summary #[id number] Discharge Medications Medication Profile: No Active Prescriptions or Reported Meds Discharge Condition Upon Discharge: stable Discharge Disposition Patient was discharged to Home () Discharge Diagnoses: Santos ([facility]),Fransisca WU Dec 24, 2016 12:26
--- NOTE | 2016-12-25 06:30 | Discharge Summary 2 SIG ---
DATE OF ADMISSION: 12/17/2016 DATE OF DISCHARGE: 12/21/2016 The patient admitted under Dr. Toscano. REASON FOR ADMISSION: A 41-year-old female who has a prior history of pancreatitis, presented with multiple complaints mostly abdominal pain, epigastric location, radiation to right lower quadrant and surrounding area for 3 weeks. The patient had a history of pancreatic stent placement 2 years ago. Upon presentation, lipase over [address] of the abdomen and pelvis was done upon admission and it revealed pancreatic duct dilatation with plastic stent in place. A 5 cm mass on right hepatic lobe probably, but not definitely hemangioma. CT was done at that time without contrast. The patient admitted for further management. ADMITTING DIAGNOSES: Include, 1. Pancreatic duct dilatation. 2. Pancreatitis. 3. Anemia. 4. Liver mass. Of note, hemoglobin and hematocrit 9.9 and 32.3 respectively. HOSPITAL STAY: The patient admitted to med/surg floor. GI consult was requested. The patient started on IV fluids, initially NPO. The patient subsequently undergone ERCP with stent removal, which was there for 2 years. Lipase was trending down and down to 25 upon discharge. New imaging was done including abdominal ultrasound and abdominal MRI. Abdominal ultrasound revealed dilated pancreatic duct with stent in place corresponding to CT finding. Stent patency undetermined. A 5 cm mass on right hepatic lobe compatible with hemangioma corresponding to CT findings and subsequently, MRI of the abdomen was done, which revealed 5 x 3 x 4.5 sharply circumscribed, multilobulated mass in the posterior periphery of hepatic segment corresponding to CT finding. Similar 7 mm mass presented in hepatic segment immediately beneath the liver dome, both demonstrated relatively uniform signal hyperintensity and both compatible with cavernous hemangioma. After the imaging, the patient subsequently undergone ERCP when the stent was removed. Tumor markers were noted. CEA and alpha-fetoprotein, both within normal limits. CA-99 with mild elevation to 42.83. Hepatitis panel was negative. Pain management provided. The patient started on PPI. DVT prophylaxis provided. Blood cultures were negative. ID followed closely. Recommended to keep the patient off antibiotics. Leukocytosis resolved. Antiemetic provided as needed. Diet resumed, low fat. After ERCP, the patient able to tolerate diet in small amounts. Hemoglobin and hematocrit were closely monitored. Hemoglobin and hematocrit remained at the baseline. GI cleared the patient for discharge and follow up with primary medical doctor. The patient reminded to come to emergency room if severe abdominal pain, fever, or unable to tolerate diet. DISCHARGE DIAGNOSES: Include, 1. Possible sepsis secondary to pancreatitis. 2. Acute on chronic pancreatitis. 3. Dilated pancreatic duct (with previous stenting). 4. Right hepatic lobe cavernous hemangioma x2. 5. Anemia. 6. Status post ERCP with stent removal. DISCHARGE MEDICATIONS: See medication reconciliation list. DISCHARGE INSTRUCTIONS: The patient discharged home. Follow up with primary medical doctor. Solo Toscano M.D. I have been assigned to dictate discharge summary on this account and I was not involved in the patient's management. Fransisca Fletchermount sinai health systemRobert NDharaPDhara DR: ANT JOB#: [id number] CC:
== END 2016-12-21 15:35 | disposition home or self-care (01) | DRG 710 ==
LOC: EDBD 15:13 → EMR 17:23 → 4E 17:37 → EDBEDREQSVC 19:27 → EDBEDREQ 20:17 → 3E 12-18 03:41
PROC: 0FPD8DZ Removal of Intraluminal Device from Pancreatic Duct, Via Natural or Artificial Opening Endoscopic (ICD-10-PCS; principal; 2016-12-21 07:22)
DX: A41.9 Sepsis, unspecified organism (principal); K85.90 Acute pancreatitis without necrosis or infection, unspecified; K86.89 Other specified diseases of pancreas; D18.03 Hemangioma of intra-abdominal structures; D64.9 Anemia, unspecified; K86.1 Other chronic pancreatitis
CPT/HCPCS: 36415; 71010; 74000; 74177; 74183; 76700; 80048; 80053; 81003; 82105; 82150; 82378; 83690; 85007; 85025; 85610; 85730; 86301; 86705; 86709; 86803; 87040; 87340; 93005; 94003; 94150; A9585; J2250; J2405